=== PATIENT | female | born 1950 | race Caucasian/White ===

== ENCOUNTER → 2016-12-08 | Outpatient (CLI) | payer MEDICARE ==
--- NOTE | 2016-12-08 15:24 | WOMENS IMAGING REPORT ---
EXAM DESCRIPTION: 3D SCREENING MAMMO BILAT COMPLETED DATE/TIME: 12/08/2016 7:41 am REASON FOR STUDY: SCREENING MAMMO Z12.31 ENCNTR SCREEN MAMMOGRAM FOR MALIGNANT NEOPLASM OF ROSANNA COMPARISON: Multiple since 2009 TECHNIQUE: Standard craniocaudal and mediolateral oblique views of each breast recorded using digita l acquisition and breast tomosynthesis. LIMITATIONS: None. FINDINGS: Findings present which are benign by mammographic criteria. No suspicious masses, calcifi cations or architectural distortion. Pertinent benign findings: Stable post surgical biopsy change in the right periareolar region. Stabl e bilateral breast parenchymal calcifications. Read with the assistance of CAD. .[facility] - R2 Cenova Version 1.3 .[facility] - R2 Cenova Version 1.3 .[facility] Imaging - R2 Cenova Version 2.4 .[facility] - R2 Cenova Version 2.4 .[facility] - R2 Director Of Analytics Version 9.2 Benign mammographic findings may include one or more of the following: Smooth masses, popcorn/rim/co arse calcifications, asymmetries, post-procedure changes, and lesions with long-standing stability. IMPRESSION: BENIGN MAMMOGRAPHIC FINDINGS. BIRADS 2 BREAST DENSITY: b. There are scattered areas of fibroglandular density. BIRAD: 2 BENIGN FINDING(S) RECOMMENDATION: RECOMMENDATION: ROUTINE SCREENING Please continue yearly bilateral screening tomosynthesis in December 2017 COMMENT: The patient has been notified of the results by letter per SA requirements. Additional no tification policies are in place for contacting patient with suspicious or incomplete findings. Quality ID #[id number]: The [employer] recommends an annual screening mammogram for women aged 40 years or over. This facility utilizes a reminder system to ensure that all patients receive reminder letters, and/or direct phone calls for appointments. This includes reminders for routine scr eening mammograms, diagnostic mammograms, or other Breast Imaging Interventions when appropriate. Th is patient will be placed in the appropriate reminder system. The [employer] (ACR) has developed recommendations for screening MRI of the breast s in certain patient populations, to be used in conjunction with mammography. Breast MRI surveillanc e may be appropriate for women with more than 20% lifetime risk of developing breast cancer as deter mined by genetic testing, significant family history of the disease, or history of mantle radiation f or Hodgkins Disease. ACR Practice Guidelines 2008. DBT Technology DBT is a type of tomographic mammography. With conventional mammography, overlapping breast tissue ma y make lesions difficult to detect, even with good compression. DBT uses an x-ray tube that rotates a round the breast, taking images at different angles. These images are then combined to create thin sl ices of the breast that the radiologist can view as a 3D reconstruction. The Hologic unit can perform full-field digital mammograms (2D imaging); or DBT (3D imaging); or both, in a combination mode that quickly performs both the mammogram and the tomosynthesis scan while the breast is still compressed. PQRS 6045F: Fluoroscopic imaging is not utilized for breast tomosynthesis. TECHNICAL DOCUMENTATION: FINDING NUMBER: (1) ASSESSMENT: (1) JOB ID: [id number] [employer]- All Rights Reserved
== END ==
LOC: WI 07:15
PROVIDERS: ATTEND Internal Medicine
DX: Z12.31 Encounter for screening mammogram for malignant neoplasm of breast (principal)
CPT/HCPCS: 77063; G0202; 77067

== ENCOUNTER → 2018-01-11 | Outpatient (CLI) | payer MEDICARE ==
--- NOTE | 2018-01-11 10:39 | WOMENS IMAGING REPORT ---
EXAM DESCRIPTION: BONE DENSITY HIP/SPINE COMPLETED DATE/TIME: 01/11/2018 10:16 am REASON FOR STUDY: OSTEOPOROSIS Z12.31 ENCNTR SCREEN MAMMOGRAM FOR MALIGNANT NEOPLASM OF ROSANNA M81.0 AGE-RELATED OSTEOPOROSIS W/O CURRENT PATHOLOGICAL FRAC COMPARISON: None. TECHNIQUE: Dual-Energy X-ray Absorptiometry (DEXA) of the AP Spine and Hip. LIMITATIONS: None. FINDINGS: LUMBAR SPINE: The bone mineral density (BMD) measured from L1-L4 in the AP projection correlates with a T-score of -2.7, which is osteoporosis as defined by the World Health Organization. HIP: The bone mineral density (BMD) measured in the left hip correlates with a T-score of -2.0, which is o steopenia as defined by the World Health Organization. IMPRESSION: 1. LUMBAR SPINE: Osteoporosis 2. HIP: Osteopenia COMMENT: The World Health Organization defines low BMD as follows: T-score: Normal: Greater than -1.0 Osteopenia: Between -1.0 and -2.5 Osteoporosis: Less than -2.5 without fractures Established osteoporosis: Less than -2.5 with fractures In general, you may wish to consider: Diagnosis Treatment Follow-up DEXA Normal BMD Prevention 2-3 years Osteopenia Prevention/Therapy 1-2 years Osteoporosis Therapy Yearly TECHNICAL DOCUMENTATION: JOB ID: [id number] [employer]- All Rights Reserved Reading location - IP/workstation name: [email or web address]
--- NOTE | 2018-01-11 14:46 | WOMENS IMAGING REPORT ---
EXAM DESCRIPTION: 3D SCREENING MAMMO BILAT COMPLETED DATE/TIME: 01/11/2018 10:17 am REASON FOR STUDY: SCREENING MAMMO Z12.31 ENCNTR SCREEN MAMMOGRAM FOR MALIGNANT NEOPLASM OF ROSANNA M81. 0 AGE-RELATED OSTEOPOROSIS W/O CURRENT PATHOLOGICAL FRAC COMPARISON: [id number] TECHNIQUE: Standard craniocaudal and mediolateral oblique views of each breast recorded using digita l acquisition and breast tomosynthesis. LIMITATIONS: None. FINDINGS: Findings present which are benign by mammographic criteria. No suspicious masses, calcifi cations or architectural distortion. Pertinent benign findings: Stable architectural distortion right. Read with the assistance of CAD. .[facility] - R2 Cenova Version 1.3 .[facility] Imaging - R2 Cenova Version 1.3 .[facility] Imaging - R2 Cenova Version 2.4 .[facility] - R2 Cenova Version 2.4 .[facility] - R2 Health Care Marketing Specialist Version 9.2 Benign mammographic findings may include one or more of the following: Smooth masses, popcorn/rim/co arse calcifications, asymmetries, post-procedure changes, and lesions with long-standing stability. IMPRESSION: BENIGN MAMMOGRAPHIC FINDINGS. BIRADS 2 BREAST DENSITY: b. There are scattered areas of fibroglandular density. BIRAD: 2 BENIGN FINDING(S) RECOMMENDATION: RECOMMENDATION: ROUTINE SCREENING COMMENT: The patient has been notified of the results by letter per SA requirements. Additional no tification policies are in place for contacting patient with suspicious or incomplete findings. Quality ID #[id number]: The [employer] recommends an annual screening mammogram for women aged 40 years or over. This facility utilizes a reminder system to ensure that all patients receive reminder letters, and/or direct phone calls for appointments. This includes reminders for routine scr eening mammograms, diagnostic mammograms, or other Breast Imaging Interventions when appropriate. Th is patient will be placed in the appropriate reminder system. The [employer] (ACR) has developed recommendations for screening MRI of the breast s in certain patient populations, to be used in conjunction with mammography. Breast MRI surveillanc e may be appropriate for women with more than 20% lifetime risk of developing breast cancer as deter mined by genetic testing, significant family history of the disease, or history of mantle radiation f or Hodgkins Disease. ACR Practice Guidelines 2008. DBT Technology DBT is a type of tomographic mammography. With conventional mammography, overlapping breast tissue ma y make lesions difficult to detect, even with good compression. DBT uses an x-ray tube that rotates a round the breast, taking images at different angles. These images are then combined to create thin sl ices of the breast that the radiologist can view as a 3D reconstruction. The [employer] unit can perform full-field digital mammograms (2D imaging); or DBT (3D imaging); or both, in a combination mode that quickly performs both the mammogram and the tomosynthesis scan while the breast is still compressed. PQRS 6045F: Fluoroscopic imaging is not utilized for breast tomosynthesis. TECHNICAL DOCUMENTATION: FINDING NUMBER: (1) ASSESSMENT: (1) JOB ID: [id number] [place] [employer]- All Rights Reserved Reading location - IP/workstation name: [email or web address]
== END ==
LOC: WI 09:01
PROVIDERS: ATTEND Internal Medicine
DX: Z12.31 Encounter for screening mammogram for malignant neoplasm of breast (principal); M81.0 Age-related osteoporosis without current pathological fracture
CPT/HCPCS: 77063; 77067; 77080

== ENCOUNTER → 2019-01-10 | Outpatient (CLI) | payer MEDICARE, OTHER ==
--- NOTE | 2019-01-10 10:32 | RADIOLOGY REPORT (SQ) ---
EXAM DESCRIPTION: U/S RETROPERITON (RENAL/AORTA) COMPLETED DATE/TIME: 01/10/2019 9:43 am REASON FOR STUDY: CKD STAGE 3 N18.3 CHRONIC KIDNEY DISEASE, STAGE 3 (MODERATE) COMPARISON: None. TECHNIQUE: Dynamic and static grayscale images acquired of the kidneys and bladder and recorded on P ACS. Additional selected color Doppler and spectral images recorded. LIMITATIONS: None. FINDINGS: RIGHT KIDNEY: The right kidney measures 8.6 cm in length. Normal echogenicity. No corbin id or suspicious masses. No hydronephrosis. No calcifications. LEFT KIDNEY: The left kidney measures 8.5 cm in length. The left kidney is mildly echogenic. No solid or suspicious masses. No hydronephrosis. No calcifications. BLADDER: No masses. OTHER FINDINGS: No other significant finding. IMPRESSION: Small kidneys. The left kidney is echogenic consistent with medical renal disease. No hydronephrosis. TECHNICAL DOCUMENTATION: JOB ID: [id number] [employer]- All Rights Reserved Reading location - IP/workstation name: [email or web address]
== END ==
LOC: RAD 08:50
PROVIDERS: ATTEND Internal Medicine
DX: N18.3 Chronic kidney disease, stage 3 (moderate) (principal)
CPT/HCPCS: 76770

== ENCOUNTER → 2019-01-12 | Outpatient (CLI) | payer MEDICARE, OTHER ==
--- NOTE | 2019-01-12 13:29 | WOMENS IMAGING REPORT ---
EXAM DESCRIPTION: 3D SCREENING MAMMO BILAT COMPLETED DATE/TIME: 01/12/2019 9:42 am REASON FOR STUDY: Z12.31 SCREENING MAMMO Z12.31 ENCNTR SCREEN MAMMOGRAM FOR MALIGNANT NEOPLASM OF B RE COMPARISON: 2015 to 2017 EXAM PARAMETERS: Views: Standard craniocaudal and mediolateral oblique views of each breast recorded using digital acquisition and breast tomosynthesis. Read with the assistance of CAD. .[facility] - [employer] Receiving Clerk Version 9.2 LIMITATIONS: None. FINDINGS: No suspicious masses, suspicious calcifications or architectural distortion. No areas of c oncern. IMPRESSION: NEGATIVE MAMMOGRAM. BIRADS 1. BREAST DENSITY: b. There are scattered areas of fibroglandular density. BIRAD: ASSESSMENT: 1 NEGATIVE RECOMMENDATION: ROUTINE SCREENING COMMENT: The patient has been notified of the results by letter per MQSA requirements. Additional no tification policies are in place for contacting patient with suspicious or incomplete findings. Quality ID #[id number]: The [employer] recommends an annual screening mammogram for women aged 40 years or over. This facility utilizes a reminder system to ensure that all patients receive reminder letters, and/or direct phone calls for appointments. This includes reminders for routine scr eening mammograms, diagnostic mammograms, or other Breast Imaging Interventions when appropriate. Th is patient will be placed in the appropriate reminder system. TECHNICAL DOCUMENTATION: FINDING NUMBER: (1) ASSESSMENT: (1) JOB ID: [id number] [employer]- All Rights Reserved Reading location - IP/workstation name: [email or web address]
== END ==
LOC: RAD 09:20
PROVIDERS: ATTEND Internal Medicine
DX: Z12.31 Encounter for screening mammogram for malignant neoplasm of breast (principal)
CPT/HCPCS: 77063; 77067

== ENCOUNTER 2019-01-15 19:46 | Inpatient (IN) | payer MEDICARE, OTHER ==
--- NOTE | 2019-01-15 20:32 | ER Document Report ---
ED Medical Screen (RME) - General Chief Complaint: ABNORMAL LABS Stated Complaint: ABNORMAL LABS/OFFICE REFERRAL Time Seen by Provider: 01/15/19 20:22 Primary Care Provider: SÁNCHEZ HERBERT MD [Primary Care Provider] - Follow up as needed Mode of Arrival: Ambulatory Information source: Patient Notes: Patient is a 68-year-old female presenting from Dr. Herbert's office stating that she is here for multiple myeloma work-up. Patient reports she had outpatient labs drawn and states that they are abnormal. Patient states Dr. Herbert wanted her to be admitted for a multiple myeloma work-up. Patient does report some left lower back pain but denies any other recent illness to include chest pain, shortness of breath, cough, nausea, vomiting or diarrhea. Exam: Lung sounds clear and equal bilaterally. Patient alert, oriented, answering all questions appropriately with no acute distress noted. I have greeted and performed a rapid initial assessment of this patient. A comprehensive ED assessment and evaluation of the patient, analysis of test results and completion of the medical decision making process will be conducted by additional ED providers. I have specifically instructed the patient or family members with the patient to immediately return to any nursing staff should anything change in the patient's condition or with their chief complaint. This medical record was dictated with voice recognizing software. There may be grammatical, syntax errors that are unintended. TRAVEL OUTSIDE OF THE [place] IN LAST 30 DAYS: No - Related Data Allergies/Adverse Reactions: morphine Allergy (Verified 01/15/19 20:19) Home Medications: See med rec Past Medical History - Social History Chew tobacco use (# tins/day): No Frequency of alcohol use: Rare Drug Abuse: None Renal/ Medical History: Denies: Hx Peritoneal Dialysis - Immunizations Hx Diphtheria, Pertussis, Tetanus Vaccination: No Physical Exam - Vital signs Vitals: Temp Pulse Resp BP Pulse Ox 98.3 F 84 18 145/59 H 96 01/15/19 20:11 01/15/19 20:11 01/15/19 20:11 01/15/19 20:11 01/15/19 20:11 Course - Vital Signs Vital signs: Temp Pulse Resp BP Pulse Ox 98.3 F 84 18 145/59 H 96 01/15/19 20:11 01/15/19 20:11 01/15/19 20:11 01/15/19 20:11 01/15/19 20:11 Doctor's Discharge - Discharge Referrals: SÁNCHEZ HERBERT MD [Primary Care Provider] - Follow up as needed
--- NOTE | 2019-01-15 21:09 | RADIOLOGY REPORT (SQ) ---
XR CHEST 2 VIEWS CLINICAL STATEMENT: abnormal labs, eval for multiple myeloma COMPARISON: None FINDINGS: Cardiomediastinal silhouette is within normal limits. There is no focal lung consolidation or pleural effusion. No evidence of pulmonary edema or pneumothorax. IMPRESSION: No acute cardiopulmonary disease.
--- NOTE | 2019-01-15 21:17 | RADIOLOGY REPORT (SQ) ---
XR LUMBAR SPINE 2-3 VIEWS CLINICAL STATEMENT: eval for multiple myeloma, L flank pain COMPARISON: None FINDINGS: Vertebral body heights are intact. Alignment is intact. No subluxation. Pedicles are intact. Mild vascular calcification. Mild degenerative changes at L2-3 and L3-4. No lytic or blastic lesions are noted. IMPRESSION: No compression fractures. No lytic lesions. Mild degenerative changes.
[2019-01-15 21:43] LABS: APPEARANCE,URINE CLEAR; BILIRUBIN,URINE NEGATIVE (NEGATIVE); COLOR,URINE YELLOW; GLUCOSE, URINE NEGATIVE (NEGATIVE); KETONES,URINE NEGATIVE (NEGATIVE); LEUKOCYTE ESTERASE,URINE MODERATE (NEGATIVE); NITRITE,URINE NEGATIVE (NEGATIVE); PROTEIN,URINE NEGATIVE (NEGATIVE); URINE SPECIFIC GRAVITY 1.014; UROBILINOGEN,URINE NEGATIVE mg/dL (<2.0)
[2019-01-15 21:44] LABS: ABSOLUTE EOSINOPHILS # (AUTO) 0.3 10^3/uL (0.0-0.6); ABSOLUTE LYMPHOCYTES (AUTO) 2.5 10^3/uL (0.5-4.7); ABSOLUTE MONOCYTES (AUTO) 0.3 10^3/uL (0.1-1.4); ABSOLUTE NEUT (AUTO) 2.1 10^3/uL (1.7-8.2); BASOPHILS % (AUTO) 0.6 % (0-2); EOSINOPHILS % (AUTO) 5.3 % (0-6); HEMATOCRIT 28.2 % (36.0-47.0); HEMOGLOBIN 9.5 g/dL (12.0-15.5); LYMPHOCYTES % (AUTO) 47.8 % (13-45); MEAN CORPUSCULAR HEMOGLOBIN 31.4 pg (27.0-33.4); MEAN CORPUSCULAR HGB CONC 33.8 g/dL (32.0-36.0); MEAN CORPUSCULAR VOLUME 93 fl (80-97); MONOCYTES % (AUTO) 6.5 % (3-13); PLATELET COUNT 285 10^3/uL (150-450); RED BLOOD COUNT 3.03 10^6/uL (3.72-5.28); RED CELL DISTRIBUTION WIDTH 13.6 % (11.5-14.0); SEGMENTED NEUTROPHILS % (AUTO) 39.8 % (42-78); TOTAL CELLS COUNTED % (AUTO) 100 %; WHITE BLOOD COUNT 5.2 10^3/uL (4.0-10.5)
[2019-01-15 21:50] LABS: ALBUMIN 4.6 g/dL (3.5-5.0); ALKALINE PHOSPHATASE 54 U/L (38-126); ANION GAP 14 (5-19); ASPARTATE AMINO TRANSFERASE 25 U/L (14-36); BILIRUBIN,DIRECT 0.2 mg/dL (0.0-0.4); BILIRUBIN,TOTAL 0.3 mg/dL (0.2-1.3); BLOOD UREA NITROGEN 37 mg/dL (7-20); CALCIUM 10.3 mg/dL (8.4-10.2); CARBON DIOXIDE 22 mmol/L (22-30); CHLORIDE 104 mmol/L (98-107); GLUCOSE 80 mg/dL (75-110); POTASSIUM 4.9 mmol/L (3.6-5.0); TOTAL PROTEIN 8.5 g/dL (6.3-8.2)
--- NOTE | 2019-01-15 22:29 | PDOC H&P ---
History of Present Illness Admission Date/PCP: 01/15/19 22:11 SÁNCHEZ HERBERT MD History of Present Illness: DORITA HOLLINS is a 68 year old female,Patient was admitted directly from [facility] for the management of hypercalcemia. She had blood work done initially on December 27, 2018 the blood work demonstrated elevated serum creatinine at 1.83 because of this elevation of serum creatinine she was evaluated for possible etiology of the azotemia. Initially a kidney ultrasound was done, The kidney ultrasound showed medical renal disease with no hydronephrosis, subsequent blood work that was done on 01/10/2019 demonstrated serum calcium 11.9, serum creatinine 2.21, the intact PTH was low at 8 she also had anemia, hemoglobin was 8.7. The constellation of hypercalcemia, anemia, acute kidney injury is consistent with multiple myeloma. She is admitted to the hospital to be treated for the hypercalcemia with hydration and probably biphosphonate and also evaluated for multiple myeloma. Serum protein electrophoresis will be ordered free serum light chain will be ordered Past Medical History Cardiac Medical History: Reports: Hypertension Musculoskeltal Medical History: Reports: Arthritis Social History Smoking Status: Former Smoker Electronic Cigarette use?: No Family History Family History: Reviewed & Not Pertinent Parental Family History Reviewed: Yes Children Family History Reviewed: Yes Sibling(s) Family History Reviewed.: Yes Medication/Allergy Home Medications: Calcium Carb, Citrate/Vit D3 [Calcium + D3 ER Tablet] 1 each PO DAILY 01/15/19 Cyclobenzaprine HCl [Flexeril 10 mg Tablet] 10 mg PO TIDP PRN 01/15/19 Denosumab [Prolia 60 mg/ml Syr 1 ml] 60 mg SUBCUT .6MONTHS 01/15/19 Gabapentin [Neurontin 300 mg Capsule] 300 mg PO Q8 01/15/19 Lisinopril/Hydrochlorothiazide [Lisinopril-Hctz 20-12.5 mg Tab] 1 each PO DAILY 01/15/19 Oxycodone HCl 5 mg PO Q6HP PRN 01/15/19 Pravastatin Sodium 10 mg PO DAILY 01/15/19 Allergies/Adverse Reactions: morphine Allergy (Verified 01/15/19 20:19) Review of Systems Constitutional: ABSENT: chills, fever(s), headache(s), weight gain, weight loss Eyes: ABSENT: visual disturbances Ears: ABSENT: hearing changes Cardiovascular: ABSENT: chest pain, dyspnea on exertion, edema, orthropnea, palpitations Respiratory: ABSENT: cough, hemoptysis Gastrointestinal: ABSENT: abdominal pain, constipation, diarrhea, hematemesis, hematochezia, nausea, vomiting Genitourinary: ABSENT: dysuria, hematuria Musculoskeletal: PRESENT: back pain. ABSENT: joint swelling Integumentary: ABSENT: rash, wounds Neurological: ABSENT: abnormal gait, abnormal speech, confusion, dizziness, focal weakness, syncope Psychiatric: ABSENT: anxiety, depression, homidical ideation, suicidal ideation Endocrine: ABSENT: cold intolerance, heat intolerance, menstrual abnormalities, polydipsia, polyuria Hematologic/Lymphatic: ABSENT: easy bleeding, easy bruising, lymphadenopathy Physical Exam Vital Signs: Temp Pulse Resp BP Pulse Ox 98.3 F 84 18 145/59 H 96 01/15/19 20:11 01/15/19 20:11 01/15/19 20:11 01/15/19 20:11 01/15/19 20:11 Intake & Output 01/14/19 01/15/19 01/16/19 06:59 06:59 06:59 Weight 74.752 kg General appearance: PRESENT: no acute distress, well-developed, well-nourished Head exam: PRESENT: atraumatic, normocephalic Eye exam: PRESENT: conjunctiva pink, EOMI, PERRLA Ear exam: PRESENT: normal external ear exam Mouth exam: PRESENT: moist, tongue midline Neck exam: PRESENT: full ROM Respiratory exam: PRESENT: clear to auscultation ramon Cardiovascular exam: PRESENT: RRR, +S1, +S2 Pulses: PRESENT: normal dorsalis pedis pul, +2 pedal pulses bilateral Vascular exam: PRESENT: normal capillary refill GI/Abdominal exam: PRESENT: normal bowel sounds, soft Rectal exam: PRESENT: deferred Neurological exam: PRESENT: alert, awake, oriented to person, oriented to place, oriented to time, oriented to situation, CN II-XII grossly intact Psychiatric exam: PRESENT: appropriate affect, normal mood Skin exam: PRESENT: dry, intact, warm Results Laboratory Results: 01/15/19 21:20 01/15/19 21:20 01/15/19 01/15/19 01/15/19 21:20 21:20 21:20 WBC 5.2 RBC 3.03 L Hgb 9.5 L Hct 28.2 L MCV 93 MCH 31.4 MCHC 33.8 RDW 13.6 Plt Count 285 Seg Neutrophils % 39.8 L Sodium 140.2 Potassium 4.9 Chloride 104 Carbon Dioxide 22 Anion Gap 14 BUN 37 H Creatinine 2.72 H Est GFR ( Amer) 21 L Glucose 80 Calcium 10.3 H Total Bilirubin 0.3 AST 25 Alkaline Phosphatase 54 Total Protein 8.5 H Albumin 4.6 Urine Color YELLOW Urine Appearance CLEAR Urine pH 5.0 Ur Specific [place] 1.014 Urine Protein NEGATIVE Urine Glucose (UA) NEGATIVE Urine Ketones NEGATIVE Urine Blood SMALL H Urine Nitrite NEGATIVE Ur Leukocyte Esterase MODERATE H Urine WBC (Auto) 12 Urine RBC (Auto) 9 Impressions: Chest X-Ray 01/15/19 20:25 IMPRESSION: No acute cardiopulmonary disease. Lumbar Spine X-Ray 01/15/19 20:30 IMPRESSION: No compression fractures. No lytic lesions. Mild degenerative changes. Assessment & Plan - Diagnosis (1) Hypercalcemia Is this a current diagnosis for this admission?: Yes Plan: The constellation of hypercalcemia, acute kidney injury, anemia, is suspicious for multiple myeloma, She would be treated with normal saline to correct the hypercalcemia and also any prerenal component that may present. (2) Anemia Qualifiers: Anemia type: other cause Other causes of anemia: chronic disease, neoplastic Qualified Code(s): D63.0 - Anemia in neoplastic disease Is this a current diagnosis for this admission?: Yes Plan: In the office the serum iron indices was normal including ferritin, serum iron, TIBC, transferrin saturation,The anemia is most likely related to paraproteinemia awaiting serum protein electrophoresis, will also assay free Keppra and lambda light chain. The serum protein electrophoresis is not sensiti ve to detect light chain multiple myeloma (3) Acute kidney injury Is this a current diagnosis for this admission?: Yes
--- NOTE | 2019-01-15 23:18 | RADIOLOGY REPORT (SQ) ---
EXAM DESCRIPTION: XR BONE SURVEY COMPLETE COMPLETED DATE/TME: 01/15/2019 00:00 CLINICAL HISTORY: 68 years, Female, SUSPECT MULTIPLE MYELOMA COMPARISON: Plain films from today's date NUMBER OF VIEWS: 20 TECHNIQUE: Total body adult bone survey LIMITATIONS: None. FINDINGS: Bony calvarium: Hyperostosis frontalis interna incidentally noted. However no lytic lesions to the bony calvarium or evidence for fracture. Cervical spine: Osteopenia. Height and alignment is preserved. No lytic or blastic changes. Thoracic spine: Minor endplate degenerative changes. No focal lytic lesions. Height and alignment is preserved. Lumbar spine: Osteopenia. Height and alignment is preserved. No lytic lesions. Bony thorax: Osteopenia. No discrete lytic or blastic changes. Minimal scarring in the left lung base. Bony pelvis: No focal liver lesions. Minor degenerative change of the hips bilaterally. Right lower extremity: Negative for fracture. No lytic lesions. Left lower extremity: Negative for fracture. No focal lytic lesions. Right upper extremity: Negative for fracture. No lytic lesions. Left upper extremity: Negative for fracture. No lytic lesions.. IMPRESSION: No suspicious lytic or blastic changes to the axial or appendicular skeletons. copyright 2010 [employer]- All Rights Reserved
[2019-01-15 23:59] LABS: UR PRO/CREAT RATIO RESULT 0.1 mg/mg (0.0-0.2); URINE CREATININE 117.4 mg/dL (15-278); URINE PROTEIN 8.5 mg/dL (<12)
[2019-01-16 00:24] LABS: CREATINE KINASE MB 1.87 ng/mL (<4.55)
[2019-01-16 00:28] LABS: TROPONIN I < 0.012 ng/mL
[2019-01-16 00:28] LABS: FREE T4 (FREE THYROXINE) 1.02 ng/dL (0.78-2.19)
[2019-01-16 00:41] LABS: THYROID STIMULATING HORMONE 9.49 uIU/mL (0.47-4.68)
[2019-01-16] MEDS: NORMAL SALINE 1000 ML 1,000 ML IV PRN ×3 (01:47→23:59)
[2019-01-16] MEDS ORDERED: INFLUENZA QUAD (6MOS+) 2019-20 VAC 0.5 ML SYR IM ONE (04:18)
[2019-01-16 05:52] LABS: ABSOLUTE EOSINOPHILS # (AUTO) 0.3 10^3/uL (0.0-0.6); ABSOLUTE MONOCYTES (AUTO) 0.4 10^3/uL (0.1-1.4); ABSOLUTE NEUT (AUTO) 2.2 10^3/uL (1.7-8.2); BASOPHILS % (AUTO) 0.5 % (0-2); EOSINOPHILS % (AUTO) 5.1 % (0-6); HEMATOCRIT 25.1 % (36.0-47.0); HEMOGLOBIN 8.5 g/dL (12.0-15.5); LYMPHOCYTES % (AUTO) 41.4 % (13-45); MEAN CORPUSCULAR HEMOGLOBIN 31.2 pg (27.0-33.4); MEAN CORPUSCULAR HGB CONC 33.9 g/dL (32.0-36.0); MEAN CORPUSCULAR VOLUME 92 fl (80-97); MONOCYTES % (AUTO) 8.7 % (3-13); PLATELET COUNT 250 10^3/uL (150-450); RED BLOOD COUNT 2.73 10^6/uL (3.72-5.28); RED CELL DISTRIBUTION WIDTH 13.4 % (11.5-14.0); SEGMENTED NEUTROPHILS % (AUTO) 44.3 % (42-78); TOTAL CELLS COUNTED % (AUTO) 100 %; WHITE BLOOD COUNT 4.9 10^3/uL (4.0-10.5)
[2019-01-16 06:09] LABS: ALBUMIN 3.6 g/dL (3.5-5.0); ALKALINE PHOSPHATASE 42 U/L (38-126); ANION GAP 8 (5-19); ASPARTATE AMINO TRANSFERASE 21 U/L (14-36); BILIRUBIN,DIRECT 0.2 mg/dL (0.0-0.4); BILIRUBIN,TOTAL 0.2 mg/dL (0.2-1.3); BLOOD UREA NITROGEN 34 mg/dL (7-20); CALCIUM 9.4 mg/dL (8.4-10.2); CARBON DIOXIDE 25 mmol/L (22-30); CHLORIDE 109 mmol/L (98-107); GLUCOSE 101 mg/dL (75-110); POTASSIUM 4.4 mmol/L (3.6-5.0); TOTAL PROTEIN 6.6 g/dL (6.3-8.2)
[2019-01-16 06:19] LABS: CREATINE KINASE MB 1.49 ng/mL (<4.55)
[2019-01-16 06:20] LABS: TROPONIN I < 0.012 ng/mL
[2019-01-16] MEDS: HEPARIN SOD (PORCINE) 5,000 UNIT/ML 1 ML VIAL SUBCUT SCH ×4 (07:35→21:11)
[2019-01-16 08:32] LABS: APPEARANCE,URINE CLEAR; BILIRUBIN,URINE NEGATIVE (NEGATIVE); COLOR,URINE STRAW; GLUCOSE, URINE NEGATIVE (NEGATIVE); KETONES,URINE NEGATIVE (NEGATIVE); LEUKOCYTE ESTERASE,URINE MODERATE (NEGATIVE); NITRITE,URINE NEGATIVE (NEGATIVE); PROTEIN,URINE NEGATIVE (NEGATIVE); URINE SPECIFIC GRAVITY 1.009; UROBILINOGEN,URINE NEGATIVE mg/dL (<2.0)
[2019-01-16 08:50] LABS: URINE AMPHETAMINES SCREEN NEGATIVE; URINE BARBITURATES SCREEN NEGATIVE; URINE BENZODIAZEPINES SCREEN NEGATIVE; URINE COCAINE SCREEN NEGATIVE; URINE MARIJUANA (THC) SCREEN NEGATIVE; URINE METHADONE SCREEN NEGATIVE; URINE PHENCYCLIDINE SCREEN NEGATIVE
[2019-01-16 12:11] LABS: TROPONIN I < 0.012 ng/mL
[2019-01-16] MEDS ORDERED: (PENDING PHARMACY ID) (Oxycodone Hcl [Oxycodone Hcl] 5 MG) PO PRN (20:20)
[2019-01-16] MEDS ORDERED: CYCLOBENZAPRINE HCL 10 MG TABLET PO PRN (20:20)
--- NOTE | 2019-01-16 20:25 | PDOC PROGRESS REPORT ---
Subjective Progress Note for:: 01/16/19 Subjective:: Patient was seen by the bedside, she was admitted yesterday for the evaluation and management of hypercalcemia, acute kidney injury, anemia. She is presently on IV fluid therapy. The skeletal survey that was done did not demonstrate any lytic lesion. Reason For Visit: HYPERCALCEMIA, ANEMIA, ACUTE KIDNEY INJURY Physical Exam Vital Signs: Temp Pulse Resp BP Pulse Ox 97.2 F 86 18 122/73 100 01/16/19 19:27 01/16/19 19:27 01/16/19 19:27 01/16/19 19:27 01/16/19 19:27 Intake & Output 01/15/19 01/16/19 01/17/19 06:59 06:59 06:59 Intake Total 240 1900 Output Total 600 Balance 240 1300 Weight 75.3 kg General appearance: PRESENT: no acute distress Eye exam: PRESENT: PERRLA Respiratory exam: PRESENT: clear to auscultation ramon Cardiovascular exam: PRESENT: +S1, +S2 GI/Abdominal exam: PRESENT: soft Neurological exam: PRESENT: alert, CN II-XII grossly intact Results Laboratory Results: 01/16/19 05:38 01/16/19 05:38 01/15/19 01/15/19 01/15/19 21:20 21:20 21:20 WBC 5.2 RBC 3.03 L Hgb 9.5 L Hct 28.2 L MCV 93 MCH 31.4 MCHC 33.8 RDW 13.6 Plt Count 285 Seg Neutrophils % 39.8 L Sodium 140.2 Potassium 4.9 Chloride 104 Carbon Dioxide 22 Anion Gap 14 BUN 37 H Creatinine 2.72 H Est GFR ( Amer) 21 L Glucose 80 Calcium 10.3 H Phosphorus Magnesium Total Bilirubin 0.3 AST 25 Alkaline Phosphatase 54 Total Protein 8.5 H Albumin 4.6 Amylase Lipase TSH Free T4 PTH Intact Urine Color YELLOW Urine Appearance CLEAR Urine pH 5.0 Ur Specific [place] 1.014 Urine Protein NEGATIVE Urine Glucose (UA) NEGATIVE Urine Ketones NEGATIVE Urine Blood SMALL H Urine Nitrite NEGATIVE Ur Leukocyte Esterase MODERATE H Urine WBC (Auto) 12 Urine RBC (Auto) 9 01/15/19 01/15/19 01/15/19 21:20 21:20 23:23 WBC RBC Hgb Hct MCV MCH MCHC RDW Plt Count Seg Neutrophils % Sodium Potassium Chloride Carbon Dioxide Anion Gap BUN Creatinine Est GFR ( Amer) Glucose Calcium Phosphorus 5.0 H Magnesium 2.2 Total Bilirubin AST Alkaline Phosphatase Total Protein Albumin Amylase 100 Lipase 37.8 TSH 9.49 H Free T4 1.02 PTH Intact 51.8 Urine Color Urine Appearance Urine pH Ur Specific [place] Urine Protein Urine Glucose (UA) Urine Ketones Urine Blood Urine Nitrite Ur Leukocyte Esterase Urine WBC (Auto) Urine RBC (Auto) 01/16/19 01/16/19 01/16/19 05:38 05:38 07:30 WBC 4.9 RBC 2.73 L Hgb 8.5 L Hct 25.1 L MCV 92 MCH 31.2 MCHC 33.9 RDW 13.4 Plt Count 250 Seg Neutrophils % 44.3 Sodium 142.2 Potassium 4.4 Chloride 109 H Carbon Dioxide 25 Anion Gap 8 BUN 34 H Creatinine 2.21 H Est GFR ( Amer) 27 L Glucose 101 Calcium 9.4 Phosphorus Magnesium Total Bilirubin 0.2 AST 21 Alkaline Phosphatase 42 Total Protein 6.6 Albumin 3.6 Amylase Lipase TSH Free T4 PTH Intact Urine Color STRAW Urine Appearance CLEAR Urine pH 5.0 Ur Specific [place] 1.009 Urine Protein NEGATIVE Urine Glucose (UA) NEGATIVE Urine Ketones NEGATIVE Urine Blood NEGATIVE Urine Nitrite NEGATIVE Ur Leukocyte Esterase MODERATE H Urine WBC (Auto) 10 Urine RBC (Auto) 2 01/15/19 01/15/19 01/16/19 23:23 23:23 05:38 CK-MB (CK-2) 1.87 1.49 Troponin I < 0.012 < 0.012 NT-Pro-B Natriuret Pep 114 01/16/19 11:21 CK-MB (CK-2) 1.30 Troponin I < 0.012 NT-Pro-B Natriuret Pep Impressions: Skeletal Survey 01/15/19 00:00 IMPRESSION: No suspicious lytic or blastic changes to the axial or appendicular skeletons. copyright 2010 [employer]- All Rights Reserved Chest X-Ray 01/15/19 20:25 IMPRESSION: No acute cardiopulmonary disease. Lumbar Spine X-Ray 01/15/19 20:30 IMPRESSION: No compression fractures. No lytic lesions. Mild degenerative changes. Assessment & Plan - Diagnosis (1) Hypercalcemia Is this a current diagnosis for this admission?: Yes Plan: She will continue hydration, the serum calcium is responding to hydration (2) Anemia Qualifiers: Anemia type: other cause Other causes of anemia: chronic disease, neoplastic Qualified Code(s): D63.0 - Anemia in neoplastic disease Is this a current diagnosis for this admission?: Yes (3) Acute kidney injury Is this a current diagnosis for this admission?: Yes Plan: There is slight improvement in the azotemia with hydration - Time Time Spent with patient: 35 or more minutes Level of Care: IMCU
[2019-01-16] MEDS ORDERED: (PENDING PHARMACY ID) (Pravastatin Sodium [Pravastatin Sodium] 10 MG) PO SCH (20:30)
[2019-01-16] MEDS ORDERED: (PENDING PHARMACY ID) (Lisinopril/Hydrochlorothiazide [Lisinopril-Hctz 20-12.5 Mg Tab] 1 E PO SCH (20:30)
[2019-01-16] MEDS: SIMVASTATIN 10 MG TABLET PO SCH (21:10)
[2019-01-16] MEDS: GABAPENTIN 300 MG CAPSULE PO SCH (21:11)
[2019-01-17] MEDS: GABAPENTIN 300 MG CAPSULE PO SCH ×3 (05:25→21:46)
[2019-01-17] MEDS: HEPARIN SOD (PORCINE) 5,000 UNIT/ML 1 ML VIAL SUBCUT SCH ×3 (05:25→21:46)
[2019-01-17] MEDS: OXYCODONE HCL IR 5 MG TABLET PO PRN (05:25)
[2019-01-17 08:21] LABS: ABSOLUTE EOSINOPHILS # (AUTO) 0.2 10^3/uL (0.0-0.6); ABSOLUTE LYMPHOCYTES (AUTO) 1.8 10^3/uL (0.5-4.7); ABSOLUTE MONOCYTES (AUTO) 0.4 10^3/uL (0.1-1.4); ABSOLUTE NEUT (AUTO) 2.4 10^3/uL (1.7-8.2); BASOPHILS % (AUTO) 0.7 % (0-2); EOSINOPHILS % (AUTO) 4.4 % (0-6); HEMOGLOBIN 9.4 g/dL (12.0-15.5); LYMPHOCYTES % (AUTO) 37.1 % (13-45); MEAN CORPUSCULAR HEMOGLOBIN 31.5 pg (27.0-33.4); MEAN CORPUSCULAR HGB CONC 34.8 g/dL (32.0-36.0); MEAN CORPUSCULAR VOLUME 91 fl (80-97); MONOCYTES % (AUTO) 7.4 % (3-13); PLATELET COUNT 266 10^3/uL (150-450); RED BLOOD COUNT 2.99 10^6/uL (3.72-5.28); RED CELL DISTRIBUTION WIDTH 13.4 % (11.5-14.0); SEGMENTED NEUTROPHILS % (AUTO) 50.4 % (42-78); TOTAL CELLS COUNTED % (AUTO) 100 %; WHITE BLOOD COUNT 4.8 10^3/uL (4.0-10.5)
[2019-01-17] MEDS: LISINOPRIL 10 MG TABLET PO SCH (09:17)
[2019-01-17] MEDS: NORMAL SALINE 1000 ML 1,000 ML IV PRN ×2 (09:17→22:21)
[2019-01-17] MEDS: HYDROCHLOROTHIAZIDE 12.5 MG TABLET PO SCH (09:18)
[2019-01-17 15:36] LABS: ALBUMIN 2 3.1 g/dL (2.9-4.4); ALPHA-2-GLOBULIN 2 0.8 g/dL (0.4-1.0); GAMMA GLOBULIN 1.1 g/dL (0.4-1.8); GLOBULIN TOTAL 3.1 g/dL (2.2-3.9); M-SPIKE % UR Not Observed % (Not Observ); MONOCLONAL SPIKE Not Observed g/dL (Not Observ); PROTEIN TOTAL SERUM 6.2 g/dL (6.0-8.5); PROTEIN TOTAL URINE 7.4 mg/dL (Not Estab.)
--- NOTE | 2019-01-17 20:25 | PDOC PROGRESS REPORT ---
Subjective Progress Note for:: 01/17/19 Subjective:: Patient seen by the bedside, the serum creatinine remains elevated, urine collection ongoing, serum calcium is improved with hydration Reason For Visit: HYPERCALCEMIA, ANEMIA, ACUTE KIDNEY INJURY Physical Exam Vital Signs: Temp Pulse Resp BP Pulse Ox 98.4 F 87 18 127/67 H 100 01/17/19 15:03 01/17/19 19:00 01/17/19 15:03 01/17/19 15:03 01/17/19 15:03 Intake & Output 01/16/19 01/17/19 01/18/19 06:59 06:59 06:59 Intake Total 240 2900 1720 Output Total 1000 1100 Balance 240 1900 620 Weight 75.3 kg 75 kg General appearance: PRESENT: no acute distress Eye exam: PRESENT: PERRLA Respiratory exam: PRESENT: clear to auscultation ramon Cardiovascular exam: PRESENT: +S1, +S2 GI/Abdominal exam: PRESENT: soft Neurological exam: PRESENT: alert, CN II-XII grossly intact Results Laboratory Results: 01/17/19 04:29 01/16/19 05:38 01/17/19 04:29 WBC 4.8 RBC 2.99 L Hgb 9.4 L Hct 27.0 L MCV 91 MCH 31.5 MCHC 34.8 RDW 13.4 Plt Count 266 Seg Neutrophils % 50.4 01/15/19 01/15/19 01/16/19 23:23 23:23 05:38 CK-MB (CK-2) 1.87 1.49 Troponin I < 0.012 < 0.012 NT-Pro-B Natriuret Pep 114 01/16/19 11:21 CK-MB (CK-2) 1.30 Troponin I < 0.012 NT-Pro-B Natriuret Pep Impressions: Skeletal Survey 01/15/19 00:00 IMPRESSION: No suspicious lytic or blastic changes to the axial or appendicular skeletons. copyright 2011 [employer]- All Rights Reserved Chest X-Ray 01/15/19 20:25 IMPRESSION: No acute cardiopulmonary disease. Lumbar Spine X-Ray 01/15/19 20:30 IMPRESSION: No compression fractures. No lytic lesions. Mild degenerative changes. Assessment & Plan - Diagnosis (1) Hypercalcemia Is this a current diagnosis for this admission?: Yes Plan: Improved with hydration (2) Anemia Qualifiers: Anemia type: other cause Other causes of anemia: chronic disease, neoplastic Qualified Code(s): D63.0 - Anemia in neoplastic disease Is this a current diagnosis for this admission?: Yes (3) Acute kidney injury Is this a current diagnosis for this admission?: Yes - Time Time Spent with patient: 35 or more minutes
[2019-01-17] MEDS: SIMVASTATIN 10 MG TABLET PO SCH (21:41)
[2019-01-18] MEDS: GABAPENTIN 300 MG CAPSULE PO SCH ×3 (05:05→21:39)
[2019-01-18] MEDS: HEPARIN SOD (PORCINE) 5,000 UNIT/ML 1 ML VIAL SUBCUT SCH ×3 (05:05→21:38)
[2019-01-18 05:07] LABS: ABSOLUTE EOSINOPHILS # (AUTO) 0.1 10^3/uL (0.0-0.6); ABSOLUTE LYMPHOCYTES (AUTO) 1.8 10^3/uL (0.5-4.7); ABSOLUTE MONOCYTES (AUTO) 0.4 10^3/uL (0.1-1.4); ABSOLUTE NEUT (AUTO) 2.6 10^3/uL (1.7-8.2); BASOPHILS % (AUTO) 0.4 % (0-2); EOSINOPHILS % (AUTO) 2.7 % (0-6); HEMATOCRIT 27.3 % (36.0-47.0); HEMOGLOBIN 9.3 g/dL (12.0-15.5); MEAN CORPUSCULAR HEMOGLOBIN 31.4 pg (27.0-33.4); MEAN CORPUSCULAR HGB CONC 34.1 g/dL (32.0-36.0); MEAN CORPUSCULAR VOLUME 92 fl (80-97); MONOCYTES % (AUTO) 7.7 % (3-13); PLATELET COUNT 262 10^3/uL (150-450); RED BLOOD COUNT 2.97 10^6/uL (3.72-5.28); RED CELL DISTRIBUTION WIDTH 13.6 % (11.5-14.0); SEGMENTED NEUTROPHILS % (AUTO) 53.2 % (42-78); TOTAL CELLS COUNTED % (AUTO) 100 %
[2019-01-18] MEDS: NORMAL SALINE 1000 ML 1,000 ML IV PRN ×2 (06:47→23:28)
[2019-01-18 07:15] LABS: KAPPA LAMBDA RATIO 1.92 (0.26-1.65)
[2019-01-18 08:49] LABS: ALBUMIN 3.6 g/dL (3.5-5.0); ALKALINE PHOSPHATASE 50 U/L (38-126); ANION GAP 6 (5-19); ASPARTATE AMINO TRANSFERASE 25 U/L (14-36); BILIRUBIN,DIRECT 0.1 mg/dL (0.0-0.4); BILIRUBIN,TOTAL 0.2 mg/dL (0.2-1.3); BLOOD UREA NITROGEN 15 mg/dL (7-20); CALCIUM 8.3 mg/dL (8.4-10.2); CARBON DIOXIDE 22 mmol/L (22-30); CHLORIDE 114 mmol/L (98-107); GLUCOSE 94 mg/dL (75-110); POTASSIUM 4.6 mmol/L (3.6-5.0); TOTAL PROTEIN 7.1 g/dL (6.3-8.2)
[2019-01-18] MEDS: OXYCODONE HCL IR 5 MG TABLET PO PRN ×3 (09:02→23:25)
[2019-01-18] MEDS: LISINOPRIL 10 MG TABLET PO SCH (10:10)
[2019-01-18] MEDS: HYDROCHLOROTHIAZIDE 12.5 MG TABLET PO SCH (14:18)
--- NOTE | 2019-01-18 14:49 | PDOC PROGRESS REPORT ---
Subjective Progress Note for:: 01/18/19 Subjective:: She has free light chain myeloma, the serum electrophoresis was negative for myeloma spike but the serum free kappa light chain was elevated, the ratio of kappa/lambda was elevated, she would need a bone marrow biopsy, I will consult Dr. Monge oncology Reason For Visit: HYPERCALCEMIA, ANEMIA, ACUTE KIDNEY INJURY Physical Exam Vital Signs: Temp Pulse Resp BP Pulse Ox 98.3 F 68 17 140/73 H 100 01/18/19 10:57 01/18/19 10:57 01/18/19 10:57 01/18/19 10:57 01/18/19 10:57 Intake & Output 01/17/19 01/18/19 01/19/19 06:59 06:59 06:59 Intake Total 2900 3970 222 Output Total 1000 1100 Balance 1900 2870 222 Weight 75 kg 74.9 kg General appearance: PRESENT: no acute distress Eye exam: PRESENT: PERRLA Respiratory exam: PRESENT: clear to auscultation ramon Cardiovascular exam: PRESENT: +S1, +S2 Neurological exam: PRESENT: alert Results Laboratory Results: 01/18/19 04:39 01/18/19 04:39 01/15/19 01/18/19 01/18/19 21:20 04:39 04:39 WBC 5.0 RBC 2.97 L Hgb 9.3 L Hct 27.3 L MCV 92 MCH 31.4 MCHC 34.1 RDW 13.6 Plt Count 262 Seg Neutrophils % 53.2 Sodium 142.4 Potassium 4.6 Chloride 114 H Carbon Dioxide 22 Anion Gap 6 BUN 15 Creatinine 1.27 H Est GFR ( Amer) 50 L Glucose 94 Calcium 8.3 L Total Bilirubin 0.2 AST 25 Alkaline Phosphatase 50 Total Protein 6.2 7.1 Albumin 3.1 3.6 01/15/19 01/15/19 01/16/19 23:23 23:23 05:38 CK-MB (CK-2) 1.87 1.49 Troponin I < 0.012 < 0.012 NT-Pro-B Natriuret Pep 114 01/16/19 11:21 CK-MB (CK-2) 1.30 Troponin I < 0.012 NT-Pro-B Natriuret Pep Impressions: Skeletal Survey 01/15/19 00:00 IMPRESSION: No suspicious lytic or blastic changes to the axial or appendicular skeletons. copyright 2010 [employer]- All Rights Reserved Chest X-Ray 01/15/19 20:25 IMPRESSION: No acute cardiopulmonary disease. Lumbar Spine X-Ray 01/15/19 20:30 IMPRESSION: No compression fractures. No lytic lesions. Mild degenerative changes. Assessment & Plan - Diagnosis (1) Hypercalcemia Is this a current diagnosis for this admission?: Yes Plan: Resolved with hydration (2) Anemia Qualifiers: Anemia type: other cause Other causes of anemia: chronic disease, neoplastic Qualified Code(s): D63.0 - Anemia in neoplastic disease Is this a current diagnosis for this admission?: Yes Plan: Most likely related to the myeloma disease (3) Acute kidney injury Is this a current diagnosis for this admission?: Yes Plan: Improved with hydration, kidney ultrasound demonstrated increased echogenicity consistent with medical renal disease (4) Light chain myeloma Is this a current diagnosis for this admission?: Yes Plan: Consult oncology, patient will need bone marrow biopsy - Time Time Spent with patient: 35 or more minutes - Plan Summary Plan Summary: I explained to patient the results of the evaluation so far, consultation is requested from oncology for further evaluation.
[2019-01-18] MEDS: SIMVASTATIN 10 MG TABLET PO SCH (21:39)
[2019-01-19] MEDS: HEPARIN SOD (PORCINE) 5,000 UNIT/ML 1 ML VIAL SUBCUT SCH ×3 (05:49→21:46)
[2019-01-19] MEDS: GABAPENTIN 300 MG CAPSULE PO SCH ×3 (05:49→21:46)
[2019-01-19] MEDS: DIPHENHYDRAMINE HCL 25 MG CAPSULE PO PRN ×2 (08:42→18:09)
--- NOTE | 2019-01-19 09:01 | PDOC CONSULTATION ---
Consultation Consult Date: 01/19/19 Attending physician:: SÁNCHEZ HERBERT Provider Consulted: MICK AMADO Consult reason:: Elevated light chain, anemia and kidney disease History of Present Illness Admission Date/PCP: 01/15/19 22:11 SÁNCHEZ HERBERT MD Patient complains of: Elevated light chain, acute on chronic renal failure History of Present Illness: DORITA HOLLINS is a 68 year old female who presents with acute on chronic renal failure, hypercalcemia, anemia. She tells me she has had history of hypertension now for 2 years but it has not been malignant hypertension, she was told about worsening kidney function about 3 months ago and it acutely worsened and she was brought into the hospital, she was hypercalcemic when she came in, she had SPEP done which was negative but free light chain was elevated and there was concern of multiple myeloma as the cause of the renal failure and anemia. Therefore we were consulted. Skeletal survey was done negative for any lytic lesions. Past Medical History Cardiac Medical History: Reports: Hypertension Musculoskeltal Medical History: Reports: Arthritis Past Surgical History Past Surgical History: Reports: None Social History Information Source: Patient Smoking Status: Former Smoker Electronic Cigarette use?: No - Advance Directive Resuscitation Status: Full Code Family History Family History: Reviewed & Not Pertinent Parental Family History Reviewed: Yes Children Family History Reviewed: Yes Sibling(s) Family History Reviewed.: Yes Medication/Allergy Home Medications: Calcium Carb, Citrate/Vit D3 [Calcium + D3 ER Tablet] 1 each PO DAILY 01/15/19 Cyclobenzaprine HCl [Flexeril 10 mg Tablet] 10 mg PO TIDP PRN 01/15/19 Denosumab [Prolia 60 mg/ml Syr 1 ml] 60 mg SUBCUT .6MONTHS 01/15/19 Gabapentin [Neurontin 300 mg Capsule] 300 mg PO Q8 01/15/19 Lisinopril/Hydrochlorothiazide [Lisinopril-Hctz 20-12.5 mg Tab] 1 each PO DAILY 01/15/19 Oxycodone HCl 5 mg PO Q6HP PRN 01/15/19 Pravastatin Sodium 10 mg PO DAILY 01/15/19 Allergies/Adverse Reactions: morphine Allergy (Verified 01/15/19 20:19) Review of Systems Constitutional: ABSENT: chills, fever(s), headache(s), weight gain, weight loss Eyes: ABSENT: visual disturbances Ears: ABSENT: hearing changes Cardiovascular: ABSENT: chest pain, dyspnea on exertion, edema, orthropnea, palpitations Respiratory: ABSENT: cough, hemoptysis Gastrointestinal: ABSENT: abdominal pain, constipation, diarrhea, hematemesis, hematochezia, nausea, vomiting Genitourinary: ABSENT: dysuria, hematuria Musculoskeletal: ABSENT: joint swelling Integumentary: ABSENT: rash, wounds Neurological: ABSENT: abnormal gait, abnormal speech, confusion, dizziness, focal weakness, syncope Psychiatric: ABSENT: anxiety, depression, homidical ideation, suicidal ideation Endocrine: ABSENT: cold intolerance, heat intolerance, polydipsia, polyuria Hematologic/Lymphatic: ABSENT: easy bleeding, easy bruising Physical Exam Vital Signs: Temp Pulse Resp BP Pulse Ox 98.1 F 80 18 145/73 H 100 01/19/19 03:33 01/19/19 06:48 01/19/19 03:33 01/19/19 03:33 01/19/19 03:33 Intake & Output 01/18/19 01/19/19 01/20/19 06:59 06:59 06:59 Intake Total 3970 1460 Output Total 1100 Balance 2870 1460 Weight 74.9 kg 76.4 kg General appearance: PRESENT: no acute distress, well-developed, well-nourished Head exam: PRESENT: atraumatic, normocephalic Eye exam: PRESENT: conjunctiva pink, EOMI, PERRLA. ABSENT: scleral icterus Ear exam: PRESENT: normal external ear exam Mouth exam: PRESENT: moist, tongue midline Neck exam: ABSENT: carotid bruit, JVD, lymphadenopathy, thyromegaly Respiratory exam: PRESENT: clear to auscultation ramon. ABSENT: rales, rhonchi, wheezes Cardiovascular exam: PRESENT: RRR. ABSENT: diastolic murmur, rubs, systolic murmur Pulses: PRESENT: normal dorsalis pedis pul Vascular exam: PRESENT: normal capillary refill GI/Abdominal exam: PRESENT: normal bowel sounds, soft. ABSENT: distended, guarding, mass, organolmegaly, rebound, tenderness Rectal exam: PRESENT: deferred Extremities exam: PRESENT: full ROM. ABSENT: calf tenderness, clubbing, pedal edema Neurological exam: PRESENT: alert, awake, oriented to person, oriented to place, oriented to time, oriented to situation, CN II-XII grossly intact. ABSENT: motor sensory deficit Psychiatric exam: PRESENT: appropriate affect, normal mood. ABSENT: homicidal ideation, suicidal ideation Skin exam: PRESENT: dry, intact, warm. ABSENT: cyanosis, rash Results Laboratory Results: 01/18/19 04:39 01/18/19 04:39 01/15/19 01/15/19 01/16/19 23:23 23:23 05:38 CK-MB (CK-2) 1.87 1.49 Troponin I < 0.012 < 0.012 NT-Pro-B Natriuret Pep 114 01/16/19 11:21 CK-MB (CK-2) 1.30 Troponin I < 0.012 NT-Pro-B Natriuret Pep Impressions: Skeletal Survey 01/15/19 00:00 IMPRESSION: No suspicious lytic or blastic changes to the axial or appendicular skeletons. copyright 2011 [employer]- All Rights Reserved Chest X-Ray 01/15/19 20:25 IMPRESSION: No acute cardiopulmonary disease. Lumbar Spine X-Ray 01/15/19 20:30 IMPRESSION: No compression fractures. No lytic lesions. Mild degenerative changes. Assessment & Plan - Diagnosis (1) Light chain myeloma Is this a current diagnosis for this admission?: Yes Plan: Patient may have myeloma type process although the light chain is very low, usually we see the light chain in the 4-500 range when there is significant anemia and kidney damage/endorgan damage. But I do believe given the fact that we do not have a good reason for her acute renal failure because the hypertension has not been that severe, that we should consider bone marrow biopsy, I will set that up for Tuesday. - Time Time Spent: Greater than 70 Minutes - Inpatient Certification Based on my medical assessment, after consideration of the patient's comorbidities, presenting symptoms, or acuity I expect that the services needed warrant INPATIENT care.: Yes I certify that my determination is in accordance with my understanding of Medicare's requirements for reasonable and necessary INPATIENT services [42 CFR 412.3e].: Yes Medical Necessity: Need For IV Fluids, Need for Surgery
[2019-01-19 09:14] LABS: ABSOLUTE EOSINOPHILS # (AUTO) 0.1 10^3/uL (0.0-0.6); ABSOLUTE LYMPHOCYTES (AUTO) 1.7 10^3/uL (0.5-4.7); ABSOLUTE MONOCYTES (AUTO) 0.3 10^3/uL (0.1-1.4); ABSOLUTE NEUT (AUTO) 2.8 10^3/uL (1.7-8.2); BASOPHILS % (AUTO) 0.6 % (0-2); EOSINOPHILS % (AUTO) 1.4 % (0-6); HEMATOCRIT 28.8 % (36.0-47.0); HEMOGLOBIN 9.7 g/dL (12.0-15.5); LYMPHOCYTES % (AUTO) 34.8 % (13-45); MEAN CORPUSCULAR HEMOGLOBIN 30.9 pg (27.0-33.4); MEAN CORPUSCULAR HGB CONC 33.7 g/dL (32.0-36.0); MEAN CORPUSCULAR VOLUME 92 fl (80-97); MONOCYTES % (AUTO) 5.8 % (3-13); PLATELET COUNT 257 10^3/uL (150-450); RED BLOOD COUNT 3.14 10^6/uL (3.72-5.28); RED CELL DISTRIBUTION WIDTH 13.6 % (11.5-14.0); SEGMENTED NEUTROPHILS % (AUTO) 57.4 % (42-78); TOTAL CELLS COUNTED % (AUTO) 100 %; WHITE BLOOD COUNT 4.9 10^3/uL (4.0-10.5)
[2019-01-19 09:33] LABS: ALBUMIN 3.8 g/dL (3.5-5.0); ALKALINE PHOSPHATASE 49 U/L (38-126); ANION GAP 8 (5-19); ASPARTATE AMINO TRANSFERASE 36 U/L (14-36); BILIRUBIN,DIRECT 0.2 mg/dL (0.0-0.4); BILIRUBIN,TOTAL 0.4 mg/dL (0.2-1.3); BLOOD UREA NITROGEN 9 mg/dL (7-20); CALCIUM 8.2 mg/dL (8.4-10.2); CARBON DIOXIDE 19 mmol/L (22-30); CHLORIDE 118 mmol/L (98-107); GLUCOSE 88 mg/dL (75-110); POTASSIUM 4.4 mmol/L (3.6-5.0); TOTAL PROTEIN 7.1 g/dL (6.3-8.2)
[2019-01-19] MEDS: HYDROCHLOROTHIAZIDE 12.5 MG TABLET PO SCH (10:31)
[2019-01-19] MEDS: LISINOPRIL 10 MG TABLET PO SCH (10:32)
[2019-01-19 15:36] LABS: A/G RATIO. 1.2 (0.7-1.7); ALBUMIN 3 3.3 g/dL (2.9-4.4); ALPHA-1-GLOBULIN 0.2 g/dL (0.0-0.4); IMMUNOGLOBULIN A 115 mg/dL (87-352); IMMUNOGLOBULIN G 1098 mg/dL (700-1600); IMMUNOGLOBULIN M 134 mg/dL (26-217); MONOCLONAL-SPIKE Not Observed g/dL (Not Observ); PROTEIN TOTAL SERUM 6.3 g/dL (6.0-8.5)
[2019-01-19 15:36] LABS: PROTEIN TOTAL UR 24HR 100 mg/24 hr (30-150); PROTEIN TOTAL URINE 4.6 mg/dL (Not Estab.)
[2019-01-19] MEDS: NORMAL SALINE 1000 ML 1,000 ML IV PRN (20:00)
--- NOTE | 2019-01-19 20:15 | PDOC PROGRESS REPORT ---
Subjective Progress Note for:: 01/19/19 Subjective:: .Patient seen, she had diarrhea today, loose stool, she was seen by oncology, scheduled for bone marrow biopsy Reason For Visit: HYPERCALCEMIA, ANEMIA, ACUTE KIDNEY INJURY Physical Exam Vital Signs: Temp Pulse Resp BP Pulse Ox 98.0 F 82 20 143/73 H 100 01/19/19 15:25 01/19/19 15:25 01/19/19 15:25 01/19/19 15:25 01/19/19 15:25 Intake & Output 01/18/19 01/19/19 01/20/19 06:59 06:59 06:59 Intake Total 3970 1460 480 Output Total 1100 Balance 2870 1460 480 Weight 74.9 kg 76.4 kg General appearance: PRESENT: no acute distress Eye exam: PRESENT: PERRLA Respiratory exam: PRESENT: clear to auscultation ramon Cardiovascular exam: PRESENT: +S1, +S2 GI/Abdominal exam: PRESENT: soft Neurological exam: PRESENT: alert, CN II-XII grossly intact Results Laboratory Results: 01/19/19 08:37 01/19/19 08:37 01/15/19 01/16/19 01/19/19 21:20 20:00 08:37 WBC 4.9 RBC 3.14 L Hgb 9.7 L Hct 28.8 L MCV 92 MCH 30.9 MCHC 33.7 RDW 13.6 Plt Count 257 Seg Neutrophils % 57.4 Sodium Potassium Chloride Carbon Dioxide Anion Gap BUN Creatinine Est GFR ( Amer) Glucose Calcium Total Bilirubin AST Alkaline Phosphatase Total Protein 6.3 Albumin Ur Albumin 24 Hour 100.0 Ur Total Protein 24 Hr 100 U PEP M-Jh % 24 Hr Not Observed U PEP M-Jh 24 Hr TNP Stool for White Cells 01/19/19 01/19/19 08:37 17:05 WBC RBC Hgb Hct MCV MCH MCHC RDW Plt Count Seg Neutrophils % Sodium 145.4 H Potassium 4.4 Chloride 118 H Carbon Dioxide 19 L Anion Gap 8 BUN 9 Creatinine 1.12 Est GFR ( Amer) 58 L Glucose 88 Calcium 8.2 L Total Bilirubin 0.4 AST 36 Alkaline Phosphatase 49 Total Protein 7.1 Albumin 3.8 Ur Albumin 24 Hour Ur Total Protein 24 Hr U PEP M-Jh % 24 Hr U PEP M-Jh 24 Hr Stool for White Cells Cancelled 01/15/19 01/15/19 01/16/19 23:23 23:23 05:38 CK-MB (CK-2) 1.87 1.49 Troponin I < 0.012 < 0.012 NT-Pro-B Natriuret Pep 114 01/16/19 11:21 CK-MB (CK-2) 1.30 Troponin I < 0.012 NT-Pro-B Natriuret Pep Impressions: Skeletal Survey 01/15/19 00:00 IMPRESSION: No suspicious lytic or blastic changes to the axial or appendicular skeletons. copyright 2011 [employer]- All Rights Reserved Chest X-Ray 01/15/19 20:25 IMPRESSION: No acute cardiopulmonary disease. Lumbar Spine X-Ray 01/15/19 20:30 IMPRESSION: No compression fractures. No lytic lesions. Mild degenerative changes. 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
[2019-01-19] MEDS: SIMVASTATIN 10 MG TABLET PO SCH (21:46)
[2019-01-20] MEDS: GABAPENTIN 300 MG CAPSULE PO SCH ×3 (05:36→22:33)
[2019-01-20] MEDS: HEPARIN SOD (PORCINE) 5,000 UNIT/ML 1 ML VIAL SUBCUT SCH ×3 (05:36→21:19)
[2019-01-20] MEDS: NORMAL SALINE 1000 ML 1,000 ML IV PRN (05:37)
[2019-01-20] MEDS: HYDROCHLOROTHIAZIDE 12.5 MG TABLET PO SCH (09:09)
[2019-01-20] MEDS: LISINOPRIL 10 MG TABLET PO SCH (09:09)
[2019-01-20 11:56] LABS: C DIFFICILE GDH NEGATIVE (NEGATIVE)
[2019-01-20 12:30] LABS: ABSOLUTE RETICS # 0.042 10^6/uL (0.028-0.122); RETICULOCYTE COUNT (AUTO) 1.41 % (0.66-2.85)
--- NOTE | 2019-01-20 12:33 | PDOC PROGRESS REPORT ---
Subjective Progress Note for:: 01/20/19 Subjective:: Patient patient seems to be doing better today, kidney function has improved, today added iron studies to labs. Reason For Visit: HYPERCALCEMIA, ANEMIA, ACUTE KIDNEY INJURY Physical Exam Vital Signs: Temp Pulse Resp BP Pulse Ox 98.1 F 79 16 147/80 H 97 01/20/19 07:50 01/20/19 07:50 01/20/19 07:50 01/20/19 07:50 01/20/19 07:50 Intake & Output 01/19/19 01/20/19 01/21/19 06:59 06:59 06:59 Intake Total 1460 2720 Output Total 0 Balance 1460 2720 Weight 76.4 kg 74.4 kg General appearance: PRESENT: no acute distress, well-developed, well-nourished Head exam: PRESENT: atraumatic, normocephalic Eye exam: PRESENT: conjunctiva pink, EOMI, PERRLA. ABSENT: scleral icterus Ear exam: PRESENT: normal external ear exam Mouth exam: PRESENT: moist, tongue midline Neck exam: ABSENT: carotid bruit, JVD, lymphadenopathy, thyromegaly Respiratory exam: PRESENT: clear to auscultation ramon. ABSENT: rales, rhonchi, wheezes Cardiovascular exam: PRESENT: RRR. ABSENT: diastolic murmur, rubs, systolic murmur Pulses: PRESENT: normal dorsalis pedis pul Vascular exam: PRESENT: normal capillary refill GI/Abdominal exam: PRESENT: normal bowel sounds, soft. ABSENT: distended, guarding, mass, organolmegaly, rebound, tenderness Rectal exam: PRESENT: deferred Extremities exam: PRESENT: full ROM. ABSENT: calf tenderness, clubbing, pedal edema Neurological exam: PRESENT: alert, awake, oriented to person, oriented to place, oriented to time, oriented to situation, CN II-XII grossly intact. ABSENT: motor sensory deficit Psychiatric exam: PRESENT: appropriate affect, normal mood. ABSENT: homicidal ideation, suicidal ideation Skin exam: PRESENT: dry, intact, warm. ABSENT: cyanosis, rash Results Laboratory Results: 01/19/19 08:37 01/19/19 08:37 01/15/19 01/16/19 01/19/19 21:20 20:00 17:05 Retic Count (auto) Total Protein 6.3 Ur Albumin 24 Hour 100.0 Ur Total Protein 24 Hr 100 U PEP M-Jh % 24 Hr Not Observed U PEP M-Jh 24 Hr TNP Stool for White Cells Cancelled 01/20/19 01/20/19 08:20 11:40 Retic Count (auto) 1.41 Total Protein Ur Albumin 24 Hour Ur Total Protein 24 Hr U PEP M-Jh % 24 Hr U PEP M-Jh 24 Hr Stool for White Cells NO WBCs SEEN 01/15/19 01/15/19 01/16/19 23:23 23:23 05:38 CK-MB (CK-2) 1.87 1.49 Troponin I < 0.012 < 0.012 NT-Pro-B Natriuret Pep 114 01/16/19 11:21 CK-MB (CK-2) 1.30 Troponin I < 0.012 NT-Pro-B Natriuret Pep Impressions: Skeletal Survey 01/15/19 00:00 IMPRESSION: No suspicious lytic or blastic changes to the axial or appendicular skeletons. copyright 2011 [employer]- All Rights Reserved Chest X-Ray 01/15/19 20:25 IMPRESSION: No acute cardiopulmonary disease. Lumbar Spine X-Ray 01/15/19 20:30 IMPRESSION: No compression fractures. No lytic lesions. Mild degenerative changes. Assessment & Plan - Diagnosis (1) Light chain myeloma Is this a current diagnosis for this admission?: Yes Plan: Awaiting bone marrow biopsy on Tuesday, kidney function is slowly improving. Added iron studies to labs today. - Time Time Spent with patient: 35 or more minutes - Inpatient Certification Based on my medical assessment, after consideration of the patient's comorbidities, presenting symptoms, or acuity I expect that the services needed warrant INPATIENT care.: Yes I certify that my determination is in accordance with my understanding of Medicare's requirements for reasonable and necessary INPATIENT services [42 CFR 412.3e].: Yes Medical Necessity: Need For IV Fluids, Need for Surgery, Risk of Complication if Not Cared For in Hospital
[2019-01-20 12:46] LABS: IRON(TIBC) 60.5 ug/dL (37-170)
[2019-01-20 13:56] LABS: FOLATE > 20.00 ng/mL (>2.76)
--- NOTE | 2019-01-20 14:35 | PDOC PROGRESS REPORT ---
Subjective Progress Note for:: 01/20/19 Subjective:: She complained of diarrhea, anorexia the last 2 days. She was seen by oncology earlier today the serum iron indices was normal suggesting no iron deficiency state. She is scheduled for bone marrow biopsy Reason For Visit: HYPERCALCEMIA, ANEMIA, ACUTE KIDNEY INJURY Physical Exam Vital Signs: Temp Pulse Resp BP Pulse Ox 98.1 F 79 16 147/80 H 97 01/20/19 07:50 01/20/19 07:50 01/20/19 07:50 01/20/19 07:50 01/20/19 07:50 Intake & Output 01/19/19 01/20/19 01/21/19 06:59 06:59 06:59 Intake Total 1460 2720 Output Total 0 Balance 1460 2720 Weight 76.4 kg 74.4 kg General appearance: PRESENT: no acute distress Head exam: PRESENT: atraumatic, normocephalic Eye exam: PRESENT: conjunctiva pink, EOMI, PERRLA Ear exam: PRESENT: normal external ear exam Mouth exam: PRESENT: moist, tongue midline Neck exam: PRESENT: full ROM Respiratory exam: PRESENT: clear to auscultation ramon Cardiovascular exam: PRESENT: RRR, +S1, +S2 Pulses: PRESENT: normal dorsalis pedis pul, +2 pedal pulses bilateral Vascular exam: PRESENT: normal capillary refill GI/Abdominal exam: PRESENT: normal bowel sounds, soft Rectal exam: PRESENT: deferred Neurological exam: PRESENT: alert, CN II-XII grossly intact Psychiatric exam: PRESENT: appropriate affect, normal mood Skin exam: PRESENT: dry, intact, warm Results Laboratory Results: 01/19/19 08:37 01/19/19 08:37 01/15/19 01/16/19 01/19/19 21:20 20:00 17:05 Retic Count (auto) Iron TIBC % Saturation Ferritin Total Protein 6.3 Vitamin B12 Folate Ur Albumin 24 Hour 100.0 Ur Total Protein 24 Hr 100 U PEP M-Jh % 24 Hr Not Observed U PEP M-Jh 24 Hr TNP Stool for White Cells Cancelled 01/20/19 01/20/19 01/20/19 08:20 11:40 11:40 Retic Count (auto) 1.41 Iron 60.5 TIBC 277 % Saturation 22 Ferritin 50.40 Total Protein Vitamin B12 749.0 Folate > 20.00 Ur Albumin 24 Hour Ur Total Protein 24 Hr U PEP M-Jh % 24 Hr U PEP M-Jh 24 Hr Stool for White Cells NO WBCs SEEN 01/15/19 01/15/19 01/16/19 23:23 23:23 05:38 CK-MB (CK-2) 1.87 1.49 Troponin I < 0.012 < 0.012 NT-Pro-B Natriuret Pep 114 01/16/19 11:21 CK-MB (CK-2) 1.30 Troponin I < 0.012 NT-Pro-B Natriuret Pep Impressions: Skeletal Survey 01/15/19 00:00 IMPRESSION: No suspicious lytic or blastic changes to the axial or appendicular skeletons. copyright 2011 [employer]- All Rights Reserved Chest X-Ray 01/15/19 20:25 IMPRESSION: No acute cardiopulmonary disease. Lumbar Spine X-Ray 01/15/19 20:30 IMPRESSION: No compression fractures. No lytic lesions. Mild degenerative changes. Assessment & Plan - Diagnosis (1) Hypercalcemia Is this a current diagnosis for this admission?: Yes Plan: Corrected with hydration (2) Anemia Qualifiers: Anemia type: other cause Other causes of anemia: chronic disease, neoplas tic Qualified Code(s): D63.0 - Anemia in neoplastic disease Is this a current diagnosis for this admission?: Yes (3) Acute kidney injury Is this a current diagnosis for this admission?: Yes Plan: Improved with hydration (4) Light chain myeloma Is this a current diagnosis for this admission?: Yes Plan: Scheduled for bone marrow biopsy to confirm myeloma (5) Diarrhea Qualifiers: Diarrhea type: unspecified type Qualified Code(s): R19.7 - Diarrhea, unspecified Is this a current diagnosis for this admission?: Yes - Time Time Spent with patient: 35 or more minutes Level of Care: IMCU
[2019-01-20] MEDS: OXYCODONE HCL IR 5 MG TABLET PO PRN (18:54)
[2019-01-20] MEDS: SIMVASTATIN 10 MG TABLET PO SCH (21:19)
[2019-01-21] MEDS: GABAPENTIN 300 MG CAPSULE PO SCH ×3 (05:16→21:42)
[2019-01-21] MEDS: HYDROCHLOROTHIAZIDE 12.5 MG TABLET PO SCH (09:52)
[2019-01-21] MEDS: LISINOPRIL 10 MG TABLET PO SCH (09:52)
[2019-01-21 11:37] LABS: ABSOLUTE LYMPHOCYTES (AUTO) 1.6 10^3/uL (0.5-4.7); ABSOLUTE MONOCYTES (AUTO) 0.4 10^3/uL (0.1-1.4); BASOPHILS % (AUTO) 0.5 % (0-2); EOSINOPHILS % (AUTO) 0.6 % (0-6); HEMATOCRIT 29.6 % (36.0-47.0); HEMOGLOBIN 10.1 g/dL (12.0-15.5); LYMPHOCYTES % (AUTO) 26.4 % (13-45); MEAN CORPUSCULAR HEMOGLOBIN 30.9 pg (27.0-33.4); MEAN CORPUSCULAR HGB CONC 34.2 g/dL (32.0-36.0); MEAN CORPUSCULAR VOLUME 90 fl (80-97); MONOCYTES % (AUTO) 6.8 % (3-13); PLATELET COUNT 277 10^3/uL (150-450); RED BLOOD COUNT 3.28 10^6/uL (3.72-5.28); RED CELL DISTRIBUTION WIDTH 13.6 % (11.5-14.0); SEGMENTED NEUTROPHILS % (AUTO) 65.7 % (42-78); TOTAL CELLS COUNTED % (AUTO) 100 %
[2019-01-21 11:53] LABS: ALBUMIN 4.2 g/dL (3.5-5.0); ALKALINE PHOSPHATASE 58 U/L (38-126); ANION GAP 13 (5-19); ASPARTATE AMINO TRANSFERASE 49 U/L (14-36); BILIRUBIN,DIRECT 0.1 mg/dL (0.0-0.4); BILIRUBIN,TOTAL 0.4 mg/dL (0.2-1.3); BLOOD UREA NITROGEN 9 mg/dL (7-20); CALCIUM 8.5 mg/dL (8.4-10.2); CARBON DIOXIDE 18 mmol/L (22-30); CHLORIDE 110 mmol/L (98-107); GLUCOSE 80 mg/dL (75-110); POTASSIUM 4.1 mmol/L (3.6-5.0); TOTAL PROTEIN 7.5 g/dL (6.3-8.2)
--- NOTE | 2019-01-21 14:17 | PDOC PROGRESS REPORT ---
Subjective Progress Note for:: 01/21/19 Subjective:: . Patient seen by the bedside, she continues to have loose stool, she is scheduled for a biopsy of the bone marrow tomorrow. So far stool studies negative, will treat empirically with lomotil Reason For Visit: HYPERCALCEMIA, ANEMIA, ACUTE KIDNEY INJURY Physical Exam Vital Signs: Temp Pulse Resp BP Pulse Ox 98.7 F 78 18 166/75 H 100 01/21/19 12:35 01/21/19 14:00 01/21/19 12:35 01/21/19 12:35 01/21/19 12:35 Intake & Output 01/20/19 01/21/19 01/22/19 06:59 06:59 06:59 Intake Total 2720 1575 Output Total 0 Balance 2720 1575 Weight 74.4 kg 74.4 kg General appearance: PRESENT: no acute distress Eye exam: PRESENT: PERRLA Respiratory exam: PRESENT: clear to auscultation ramon Cardiovascular exam: PRESENT: +S1, +S2 GI/Abdominal exam: PRESENT: soft Neurological exam: PRESENT: alert Results Laboratory Results: 01/21/19 11:10 01/21/19 11:10 01/21/19 01/21/19 11:10 11:10 WBC 6.0 RBC 3.28 L Hgb 10.1 L Hct 29.6 L MCV 90 MCH 30.9 MCHC 34.2 RDW 13.6 Plt Count 277 Seg Neutrophils % 65.7 Sodium 140.6 Potassium 4.1 Chloride 110 H Carbon Dioxide 18 L Anion Gap 13 BUN 9 Creatinine 1.13 Est GFR ( Amer) 58 L Glucose 80 Calcium 8.5 Total Bilirubin 0.4 AST 49 H Alkaline Phosphatase 58 Total Protein 7.5 Albumin 4.2 01/19/19 17:05 Stool - Stool - Final 01/19/19 17:05 Stool - Stool Stool Culture - Final NO SALMONELLA, SHIGELLA, CAMPYLOBACTER, OR E.COLI 0157 RECOVERED. NEGATIVE FOR SHIGA TOXINS 1&2. 01/15/19 01/15/19 01/16/19 23:23 23:23 05:38 CK-MB (CK-2) 1.87 1.49 Troponin I < 0.012 < 0.012 NT-Pro-B Natriuret Pep 114 01/16/19 11:21 CK-MB (CK-2) 1.30 Troponin I < 0.012 NT-Pro-B Natriuret Pep Impressions: Skeletal Survey 01/15/19 00:00 IMPRESSION: No suspicious lytic or blastic changes to the axial or appendicular skeletons. copyright 2011 [employer]- All Rights Reserved Chest X-Ray 01/15/19 20:25 IMPRESSION: No acute cardiopulmonary disease. Lumbar Spine X-Ray 01/15/19 20:30 IMPRESSION: No compression fractures. No lytic lesions. Mild degenerative changes. Assessment & Plan - Diagnosis (1) Hypercalcemia Is this a current diagnosis for this admission?: Yes Plan: Resolved, corrected (2) Anemia Qualifiers: Anemia type: other cause Other causes of anemia: chronic disease, neoplastic Qualified Code(s): D63.0 - Anemia in neoplastic disease Is this a current diagnosis for this admission?: Yes (3) Acute kidney injury Is this a current diagnosis for this admission?: Yes Plan: Resolved ,corrected. The kidney ultrasound that was done suggest a chronic kidney disease, with increased echogenicity, this is termed medical renal disease. But with normalization of serum creatinine this suggests that there could be an acute component, acute kidney injury, this give more credence to the fact that she could have myeloma kidney, the serum light chain concentration is not as elevated as is typically seen in light chain myeloma. (4) Light chain myeloma Is this a current diagnosis for this admission?: Yes (5) Diarrhea Qualifiers: Diarrhea type: unspecified type Qualified Code(s): R19.7 - Diarrhea, unspecified Is this a current diagnosis for this admission?: Yes - Time Time Spent with patient: 35 or more minutes Level of Care: IMCU Medications reviewed and adjusted accordingly: Yes - Plan Summary Plan Summary: Patient to be treated with lomotil, PRN, for diarrhea. She is scheduled for bone marrow biopsy in the morning, hopefully discharge home once this is complete. She will follow outpatient with oncology Dr. Monge
[2019-01-21] MEDS: DIPHENOXYLATE HCL/ATROP SULF 2.5-0.025 MG TABLET PO PRN ×2 (17:29→23:44)
[2019-01-21] MEDS: OXYCODONE HCL IR 5 MG TABLET PO PRN (17:31)
[2019-01-21] MEDS: NORMAL SALINE 1000 ML 1,000 ML IV PRN (19:20)
[2019-01-21] MEDS: SIMVASTATIN 10 MG TABLET PO SCH (21:42)
[2019-01-22] MEDS: GABAPENTIN 300 MG CAPSULE PO SCH ×2 (05:19→14:53)
[2019-01-22] MEDS: NORMAL SALINE 1000 ML 1,000 ML IV PRN (05:19)
[2019-01-22] MEDS: OXYCODONE HCL IR 5 MG TABLET PO PRN (05:26)
--- NOTE | 2019-01-22 08:06 | PDOC PROGRESS REPORT ---
Subjective Progress Note for:: 01/22/19 Subjective:: Bone marrow biopsy pending this morning, patient is doing better over the last 24 hours Reason For Visit: HYPERCALCEMIA, ANEMIA, ACUTE KIDNEY INJURY Physical Exam Vital Signs: Temp Pulse Resp BP Pulse Ox 98.2 F 87 18 140/66 H 96 01/22/19 03:14 01/22/19 03:14 01/22/19 03:14 01/22/19 03:14 01/22/19 03:14 Intake & Output 01/21/19 01/22/19 01/23/19 06:59 06:59 06:59 Intake Total 1575 1420 Balance 1575 1420 Weight 74.4 kg 74.6 kg General appearance: PRESENT: no acute distress, well-developed, well-nourished Head exam: PRESENT: atraumatic, normocephalic Eye exam: PRESENT: conjunctiva pink, EOMI, PERRLA. ABSENT: scleral icterus Ear exam: PRESENT: normal external ear exam Mouth exam: PRESENT: moist, tongue midline Neck exam: ABSENT: carotid bruit, JVD, lymphadenopathy, thyromegaly Respiratory exam: PRESENT: clear to auscultation ramon. ABSENT: rales, rhonchi, wheezes Cardiovascular exam: PRESENT: RRR. ABSENT: diastolic murmur, rubs, systolic murmur Pulses: PRESENT: normal dorsalis pedis pul Vascular exam: PRESENT: normal capillary refill GI/Abdominal exam: PRESENT: normal bowel sounds, soft. ABSENT: distended, guarding, mass, organolmegaly, rebound, tenderness Rectal exam: PRESENT: deferred Extremities exam: PRESENT: full ROM. ABSENT: calf tenderness, clubbing, pedal edema Neurological exam: PRESENT: alert, awake, oriented to person, oriented to place, oriented to time, oriented to situation, CN II-XII grossly intact. ABSENT: motor sensory deficit Psychiatric exam: PRESENT: appropriate affect, normal mood. ABSENT: homicidal ideation, suicidal ideation Skin exam: PRESENT: dry, intact, warm. ABSENT: cyanosis, rash Results Laboratory Results: 01/21/19 11:10 01/21/19 11:10 01/21/19 01/21/19 11:10 11:10 WBC 6.0 RBC 3.28 L Hgb 10.1 L Hct 29.6 L MCV 90 MCH 30.9 MCHC 34.2 RDW 13.6 Plt Count 277 Seg Neutrophils % 65.7 Sodium 140.6 Potassium 4.1 Chloride 110 H Carbon Dioxide 18 L Anion Gap 13 BUN 9 Creatinine 1.13 Est GFR ( Amer) 58 L Glucose 80 Calcium 8.5 Total Bilirubin 0.4 AST 49 H Alkaline Phosphatase 58 Total Protein 7.5 Albumin 4.2 01/19/19 17:05 Stool - Stool - Final 01/19/19 17:05 Stool - Stool Stool Culture - Final NO SALMONELLA, SHIGELLA, CAMPYLOBACTER, OR E.COLI 0157 RECOVERED. NEGATIVE FOR SHIGA TOXINS 1&2. 01/15/19 01/15/19 01/16/19 23:23 23:23 05:38 CK-MB (CK-2) 1.87 1.49 Troponin I < 0.012 < 0.012 NT-Pro-B Natriuret Pep 114 01/16/19 11:21 CK-MB (CK-2) 1.30 Troponin I < 0.012 NT-Pro-B Natriuret Pep Impressions: Skeletal Survey 01/15/19 00:00 IMPRESSION: No suspicious lytic or blastic changes to the axial or appendicular skeletons. copyright 2011 [employer]- All Rights Reserved Chest X-Ray 01/15/19 20:25 IMPRESSION: No acute cardiopulmonary disease. Lumbar Spine X-Ray 01/15/19 20:30 IMPRESSION: No compression fractures. No lytic lesions. Mild degenerative changes. Assessment & Plan - Diagnosis (1) Light chain myeloma Is this a current diagnosis for this admission?: Yes Plan: Bone marrow biopsy pending this morning, when she is medically ready for discharge per primary team, she should follow-up in our office about 2 weeks after bone marrow biopsy. We will make those arrangements. - Time Time Spent with patient: 15-24 minutes
[2019-01-22 08:43] LABS: INTERNATIONAL RATION (INR) 1.11; PROTHROMBIN TIME 14.3 SEC (11.4-15.4)
[2019-01-22] MEDS: LISINOPRIL 10 MG TABLET PO SCH (09:05)
[2019-01-22] MEDS: HYDROCHLOROTHIAZIDE 12.5 MG TABLET PO SCH (09:06)
[2019-01-22] MEDS ORDERED: MIDAZOLAM 2 MG/2 ML INJ ONE (13:02)
[2019-01-22] MEDS ORDERED: FENTANYL CITRATE INJ/PF 100 MCG/2 ML AMPUL ONE (13:02)
--- NOTE | 2019-01-22 16:51 | RADIOLOGY REPORT (SQ) ---
EXAM DESCRIPTION: CT BIOPSY BONE DEEP; CT NEEDLE PLACEMENT COMPLETED DATE/TIME: 01/22/2019 2:53 pm REASON FOR STUDY: bone marrow biopsy "eval for myeloma"; BONE MARROW BIOPSY COMPARISON: None. TECHNIQUE: CT guided biopsy of the left iliac crest bone marrow performed with conscious sedation. CT Fluoroscopy Time: 3.[address] scanners at this facility use dose modulation, iterative reconstruction, and/or weight based d osing when appropriate to reduce radiation dose to as low as reasonably achievable (ALARA). [facility]: Dose Right [facility]: CareDose [facility]: Dose Right [facility]: Teradose 4D [facility]: RECUPYL RADIATION DOSE: mGy. FINDINGS: After obtaining informed consent and explaining the risks and benefits of conscious sedati on,the patient agreed to the procedure. Prior to the procedure, a time out was performed to verify th e patient's identity and planned procedure. IV conscious sedation was administered and physician direction by the registered nurse using 1 millig yvonne of Versed and 75 micrograms of fentanyl. Physiologic monitoring was provided before, during, and after sedation. The total sedation time was 30 minutes. Documentation face to face time, the performing proceduralist, spent monitoring the patient: [address] scanning was performed to localize the percutaneous site for the biopsy approach. After sterile skin prep and local lidocaine for skin and deep tissue anesthesia, a coaxial biopsy nee dle was used to obtain a bone marrow aspirate, and a bone marrow core of tissue. The biopsy tissue wa s received by Dr. Monge's nurse to be sent out for evaluation. There were no immediate complication s. Pathology is pending at the time of dictation. IMPRESSION: CT GUIDED ASPIRATE AND CORE BIOPSY OF THE LEFT POSTERIOR ILIAC CREST BONE MARROW PERFORM ED WITHOUT IMMEDIATE COMPLICATION. PATHOLOGY PENDING. IV CONSCIOUS SEDATION WITHOUT COMPLICATION. COMMENT: Quality ID 145: Final reports for procedures using fluoroscopy that document radiation exp osure indices, or exposure time and number of fluorographic images (if radiation exposure indices are not available) Patient medication list reviewed: Yes- Quality ID# [id number]:Eligible professional attests to documenting i n the medical record they obtained, updated, or reviewed the patient's current medications.. TECHNICAL DOCUMENTATION: JOB ID: [id number] Quality ID# [id number]: Final reports with documentation of one or more dose reduction techniques (e.g., Aut omated exposure control, adjustment of the mA and/or kV according to patient size, use of iterative r econstruction technique) 2010 [employer]- All Rights Reserved Reading location - IP/workstation name: [email or web address]
--- NOTE | 2019-01-22 16:51 | RADIOLOGY REPORT (SQ) ---
EXAM DESCRIPTION: CT BIOPSY BONE DEEP; CT NEEDLE PLACEMENT COMPLETED DATE/TIME: 01/22/2019 2:53 pm REASON FOR STUDY: bone marrow biopsy "eval for myeloma"; BONE MARROW BIOPSY COMPARISON: None. TECHNIQUE: CT guided biopsy of the left iliac crest bone marrow performed with conscious sedation. CT Fluoroscopy Time: 3.[address] scanners at this facility use dose modulation, iterative reconstruction, and/or weight based d osing when appropriate to reduce radiation dose to as low as reasonably achievable (ALARA). [facility]: Dose Right [facility]: CareDose [facility]: Dose Right [facility]: Teradose 4D [facility]: [address] RADIATION DOSE: mGy. FINDINGS: After obtaining informed consent and explaining the risks and benefits of conscious sedati on,the patient agreed to the procedure. Prior to the procedure, a time out was performed to verify th e patient's identity and planned procedure. IV conscious sedation was administered and physician direction by the registered nurse using 1 millig yvonne of Versed and 75 micrograms of fentanyl. Physiologic monitoring was provided before, during, and after sedation. The total sedation time was 30 minutes. Documentation face to face time, the performing proceduralist, spent monitoring the patient: [address] scanning was performed to localize the percutaneous site for the biopsy approach. After sterile skin prep and local lidocaine for skin and deep tissue anesthesia, a coaxial biopsy nee dle was used to obtain a bone marrow aspirate, and a bone marrow core of tissue. The biopsy tissue wa s received by Dr. Monge's nurse to be sent out for evaluation. There were no immediate complication s. Pathology is pending at the time of dictation. IMPRESSION: CT GUIDED ASPIRATE AND CORE BIOPSY OF THE LEFT POSTERIOR ILIAC CREST BONE MARROW PERFORM ED WITHOUT IMMEDIATE COMPLICATION. PATHOLOGY PENDING. IV CONSCIOUS SEDATION WITHOUT COMPLICATION. COMMENT: Quality ID 145: Final reports for procedures using fluoroscopy that document radiation exp osure indices, or exposure time and number of fluorographic images (if radiation exposure indices are not available) Patient medication list reviewed: Yes- Quality ID# [id number]:Eligible professional attests to documenting i n the medical record they obtained, updated, or reviewed the patient's current medications.. TECHNICAL DOCUMENTATION: JOB ID: [id number] Quality ID# [id number]: Final reports with documentation of one or more dose reduction techniques (e.g., Aut omated exposure control, adjustment of the mA and/or kV according to patient size, use of iterative r econstruction technique) 2010 [employer]- All Rights Reserved Reading location - IP/workstation name: [email or web address]
[2019-01-22 18:50] VITALS: BP 150/56
--- NOTE | 2019-01-22 19:39 | PDOC DISCHARGE SUMMARY ---
Impression - Admit/DC Date/PCP Admission Date/Primary Care Provider: 01/15/19 22:11 SÁNCHEZ HERBERT MD Discharge Date: 01/22/19 - Discharge Diagnosis (1) Hypercalcemia Is this a current diagnosis for this admission?: Yes (2) Anemia Is this a current diagnosis for this admission?: Yes (3) Acute kidney injury Is this a current diagnosis for this admission?: Yes (4) Light chain myeloma Is this a current diagnosis for this admission?: Yes (5) Diarrhea Is this a current diagnosis for this admission?: Yes - Additional Information Resuscitation Status: Full Code Discharge Diet: As Tolerated, Regular Discharge Activity: Activity As Tolerated, Balance Activity w/Rest Referrals: MICK AMADO MD [ACTIVE STAFF] - (Someone will call you tomorrow with appointment.) SÁNCHEZ HERBERT MD [Primary Care Provider] - Follow up as needed (Someone will call you with your follow-up appointment tomorrow.) Prescriptions: Lisinopril 20 mg PO DAILY #90 tablet Home Medications: Calcium Carb, Citrate/Vit D3 [Calcium + D3 ER Tablet] 1 each PO DAILY 01/15/19 Cyclobenzaprine HCl [Flexeril 10 mg Tablet] 10 mg PO TIDP PRN 01/15/19 Denosumab [Prolia 60 mg/ml Syr 1 ml] 60 mg SUBCUT .6MONTHS 01/15/19 Gabapentin [Neurontin 300 mg Capsule] 300 mg PO Q8 01/15/19 Oxycodone HCl 5 mg PO Q6HP PRN 01/15/19 Pravastatin Sodium 10 mg PO DAILY 01/15/19 Lisinopril 20 mg PO DAILY #90 tablet 01/22/19 History of Present Illiness History of Present Illness: DORITA HOLLINS is a 68 year old female,Patient was admitted directly from outpatient for the management of hypercalcemia. She had blood work done initially on December 27, 2018 the blood work demonstrated elevated serum creatinine at 1.83 because of this elevation of serum creatinine she was evaluated for possible etiology of the azotemia. Initially a kidney ultrasound was done, The kidney ultrasound showed medical renal disease with no hydronephrosis, subsequent blood work that was done on 01/10/2019 demonstrated serum calcium 11.9, serum creatinine 2.21, the intact PTH was low at 8 she also had anemia, hemoglobin was 8.7. The constellation of hypercalcemia, anemia, acute kidney injury is consistent with multiple myeloma. She is admitted to the hospital to be treated for the hypercalcemia with hydration and probably biphosphonate and also evaluated for multiple myeloma. Serum protein electrophoresis will be ordered free serum light chain will be ordered Hospital Course Hospital Course: Patient was admitted for the management of hypercalcemia, acute kidney injury, anemia, multiple myeloma was suspected. She was treated with intravenous normal saline, the hypercalcemia was corrected, she also had the azotemia corrected with IV fluid. The serum protein electrophoresis did not demonstrate any monoclonal spike, the serum free kappa light chain was elevated, the ratio was abnormal, the elevation was not elevated enough that is typical of natural myeloma, consultation was obtained from oncology because I felt patient needed a bone marrow biopsy. This was done today.She also had diarrhea in the hospital, stool study was negative for C. difficile toxin. Physical Exam Vital Signs: Temp Pulse Resp BP Pulse Ox 98.2 F 86 16 159/79 H 100 01/22/19 18:15 01/22/19 18:15 01/22/19 18:15 01/22/19 18:15 01/22/19 18:15 Intake & Output 01/21/19 01/22/19 01/23/19 06:59 06:59 06:59 Intake Total 1575 1420 Balance 1575 1420 Weight 74.4 kg 74.6 kg General appearance: PRESENT: no acute distress Eye exam: PRESENT: PERRLA Respiratory exam: PRESENT: clear to auscultation ramon Cardiovascular exam: PRESENT: +S1, +S2 GI/Abdominal exam: PRESENT: soft Neurological exam: PRESENT: alert, CN II-XII grossly intact Results Laboratory Results: WBC 6.0 10^3/uL (4.0-10.5) 01/21/19 11:10 RBC 3.28 10^6/uL (3.72-5.28) L 01/21/19 11:10 Hgb 10.1 g/dL (12.0-15.5) L 01/21/19 11:10 Hct 29.6 % (36.0-47.0) L 01/21/19 11:10 MCV 90 fl (80-97) 01/21/19 11:10 MCH 30.9 pg (27.0-33.4) 01/21/19 11:10 MCHC 34.2 g/dL (32.0-36.0) 01/21/19 11:10 RDW 13.6 % (11.5-14.0) 01/21/19 11:10 Plt Count 277 10^3/uL (150-450) 01/21/19 11:10 Lymph % (Auto) 26.4 % (13-45) 01/21/19 11:10 [place] % (Auto) 6.8 % (3-13) 01/21/19 11:10 Eos % (Auto) 0.6 % (0-6) 01/21/19 11:10 Baso % (Auto) 0.5 % (0-2) 01/21/19 11:10 Reticulocyte # 0.042 10^6/uL (0.028-0.122) 01/20/19 11:40 Absolute Neuts (auto) 4.0 10^3/uL (1.7-8.2) 01/21/19 11:10 Absolute Lymphs (auto) 1.6 10^3/uL (0.5-4.7) 01/21/19 11:10 Absolute Monos (auto) 0.4 10^3/uL (0.1-1.4) 01/21/19 11:10 Absolute Eos (auto) 0.0 10^3/uL (0.0-0.6) 01/21/19 11:10 Absolute Basos (auto) 0.0 10^3/uL (0.0-0.2) 01/21/19 11:10 Seg Neutrophils % 65.7 % (42-78) 01/21/19 11:10 Retic Count (auto) 1.41 % (0.66-2.85) 01/20/19 11:40 PT 14.3 SEC (11.4-15.4) 01/22/19 07:47 INR 1.11 01/22/19 07:47 APTT 41.9 SEC (23.5-35.8) H 01/15/19 23:23 Sodium 140.6 mmol/L (137-145) 01/21/19 11:10 Potassium 4.1 mmol/L (3.6-5.0) 01/21/19 11:10 Chloride 110 mmol/L (98-107) H 01/21/19 11:10 Carbon Dioxide 18 mmol/L (22-30) L 01/21/19 11:10 Anion Gap 13 (5-19) 01/21/19 11:10 BUN 9 mg/dL (7-20) 01/21/19 11:10 Creatinine 1.13 mg/dL (0.52-1.25) 01/21/19 11:10 Est GFR ( Amer) 58 (>60) L 01/21/19 11:10 Est GFR (MDRD) Non-Af 48 (>60) L 01/21/19 11:10 Glucose 80 mg/dL (75-110) 01/21/19 11:10 Hemoglobin A1c % 6.2 % (4.7-6.0) H 01/16/19 05:38 Calcium 8.5 mg/dL (8.4-10.2) 01/21/19 11:10 Phosphorus 5.0 mg/dL (2.5-4.5) H 01/15/19 21:20 Magnesium 2.2 mg/dL (1.6-2.3) 01/15/19 21:20 Iron 60.5 ug/dL (37-170) 01/20/19 11:40 TIBC 277 ug/dL (250-450) 01/20/19 11:40 % Saturation 22 % 01/20/19 11:40 Ferritin 50.40 ng/mL (11.1-264.0) 01/20/19 11:40 Total Bilirubin 0.4 mg/dL (0.2-1.3) 01/21/19 11:10 Direct Bilirubin 0.1 mg/dL (0.0-0.4) 01/21/19 11:10 Neonat Total Bilirubin Not Reportable 01/21/19 11:10 Neonat Direct Bilirubin Not Reportable 01/21/19 11:10 Neonat Indirect Bili Not Reportable 01/21/19 11:10 AST 49 U/L (14-36) H 01/21/19 11:10 ALT 39 U/L (<35) 01/21/19 11:10 Alkaline Phosphatase 58 U/L (38-126) 01/21/19 11:10 CK-MB (CK-2) 1.30 ng/mL (<4.55) 01/16/19 11:21 Troponin I < 0.012 ng/mL 01/16/19 11:21 NT-Pro-B Natriuret Pep 114 pg/mL (<125) 01/15/19 23:23 Total Protein 7.5 g/dL (6.3-8.2) 01/21/19 11:10 Albumin 4.2 g/dL (3.5-5.0) 01/21/19 11:10 Globulin 3.0 g/dL (2.2-3.9) 01/15/19 21:20 Globulin 3.1 g/dL (2.2-3.9) 01/15/19 21:20 Albumin/Globulin Ratio 1.0 (0.7-1.7) 01/15/19 21:20 Alb/Glob Ratio Alt Meth 1.2 (0.7-1.7) 01/15/19 21:20 Pbbxk-7-Srmyynzqt 0.2 g/dL (0.0-0.4) 01/15/19 21:20 Aytbw-8-Utshqlikf 0.2 g/dL (0.0-0.4) 01/15/19 21:20 Xwwsd-4-Eshnqjhre 0.7 g/dL (0.4-1.0) 01/15/19 21:20 Beta Globulins 1.0 g/dL (0.7-1.3) 01/15/19 21:20 Beta Globulins 1.0 g/dL (0.7-1.3) 01/15/19 21:20 Gamma Globulins 1.0 g/dL (0.4-1.8) 01/15/19 21:20 Gamma Globulins 1.1 g/dL (0.4-1.8) 01/15/19 21:20 M-Jh Not Observed g/dL (Not Observ) 01/15/19 21:20 M-Jh Not Observed g/dL (Not Observ) 01/15/19 21:20 PEP Note Comment (.) 01/15/19 21:20 PEP Interpretation Comment (.) 01/15/19 21:20 Amylase 100 U/L (30-110) 01/15/19 21:20 Lipase 37.8 U/L (23-300) 01/15/19 21:20 Vitamin B12 749.0 pg/mL (239-931) 01/20/19 11:40 Folate > 20.00 ng/mL (>2.76) 01/20/19 11:40 TSH 9.49 uIU/mL (0.47-4.68) H 01/15/19 21:20 Free T4 1.02 ng/dL (0.78-2.19) 01/15/19 21:20 PTH Intact 51.8 pg/mL (10.0-65.0) 01/15/19 23:23 Immunoglobulin A 115 mg/dL (87-352) 01/15/19 21:20 Immunoglobulin G 1098 mg/dL (700-1600) 01/15/19 21:20 Immunoglobulin M 134 mg/dL (26-217) 01/15/19 21:20 Serum Immunofixation Comment (.) 01/15/19 21:20 Immunofixation Note Comment (.) 01/15/19 21:20 Urine Color STRAW 01/16/19 07:30 Urine Appearance CLEAR 01/16/19 07:30 Urine pH 5.0 (5.0-9.0) 01/16/19 07:30 Ur Specific [place] 1.009 01/16/19 07:30 Urine Protein NEGATIVE mg/dL (NEGATIVE) 01/16/19 07:30 Urine Glucose (UA) NEGATIVE mg/dL (NEGATIVE) 01/16/19 07:30 Urine Ketones NEGATIVE mg/dL (NEGATIVE) 01/16/19 07:30 Urine Blood NEGATIVE (NEGATIVE) 01/16/19 07:30 Urine Nitrite NEGATIVE (NEGATIVE) 01/16/19 07:30 Urine Bilirubin NEGATIVE (NEGATIVE) 01/16/19 07:30 Urine Urobilinogen NEGATIVE mg/dL (<2.0) 01/16/19 07:30 Ur Leukocyte Esterase MODERATE (NEGATIVE) H 01/16/19 07:30 Urine WBC (Auto) 10 /HPF 01/16/19 07:30 Urine RBC (Auto) 2 /HPF 01/16/19 07:30 U Hyaline Cast (Auto) 15 /LPF 01/15/19 21:20 Squamous Epi Cells Auto <1 /HPF 01/16/19 07:30 Urine Mucus (Auto) RARE /LPF 01/16/19 07:30 Urine Creatinine 117.4 mg/dL (15-278) 01/15/19 21:20 Ur Albumin 24 Hour 100.0 % (.) 01/16/19 20:00 Ur Total Protein 24 Hr 100 mg/24 hr (30-150) 01/16/19 20:00 Protein/Creatinin Ratio 0.1 mg/mg (0.0-0.2) 01/15/19 21:20 Urine Total Protein 4.6 mg/dL (Not Estab.) 01/16/19 20:00 Urine Albumin 100.0 % (.) 01/15/19 21:20 U Egzvo-1-Avwscsdr 0.0 % (.) 01/16/19 20:00 U Aowtc-4-Mkhmvbdk 0.0 % (.) 01/16/19 20:00 U Beta Globulin 0.0 % (.) 01/16/19 20:00 U Gamma Globulin 0.0 % (.) 01/16/19 20:00 U Random M-Jh (%) Not Observed % (Not Observ) 01/15/19 21:20 U PEP M-Jh % 24 Hr Not Observed % (Not Observ) 01/16/19 20:00 U PEP M-Jh 24 Hr TNP 01/16/19 20:00 Urine PEP Interpret Comment (.) 01/16/19 20:00 Urine PEP Note Comment (.) 01/16/19 20:00 Urine Ascorbic Acid 20 (NEGATIVE) H 01/16/19 07:30 Stool for White Cells NO WBCs SEEN 01/20/19 08:20 Stl C. Difficile GDH Ag NEGATIVE (NEGATIVE) 01/20/19 08:20 Stl C.difficile Tox A&B NEGATIVE (NEGATIVE) 01/20/19 08:20 Urine Opiates Screen NEGATIVE 01/16/19 07:30 Urine Methadone Screen NEGATIVE 01/16/19 07:30 Ur Barbiturates Screen NEGATIVE 01/16/19 07:30 Ur Phencyclidine Scrn NEGATIVE 01/16/19 07:30 Ur Amphetamines Screen NEGATIVE 01/16/19 07:30 U Benzodiazepines Scrn NEGATIVE 01/16/19 07:30 Urine Cocaine Screen NEGATIVE 01/16/19 07:30 U Marijuana (THC) Screen NEGATIVE 01/16/19 07:30 Albumin (ADRIÁN) 3.3 g/dL (2.9-4.4) 01/15/19 21:20 Gblfr-4-Axqnbzren ADRIÁN 0.8 g/dL (0.4-1.0) 01/15/19 21:20 Free [place] LC, Quant 48.0 mg/L (3.3-19.4) H 01/15/19 21:20 Free Lambda LC, Quant 25.0 mg/L (5.7-26.3) 01/15/19 21:20 Free [place]/Lambda Ratio 1.92 (0.26-1.65) H 01/15/19 21:20 01/15/19 01/15/19 01/16/19 23:23 23:23 05:38 CK-MB (CK-2) 1.87 1.49 Troponin I < 0.012 < 0.012 NT-Pro-B Natriuret Pep 114 01/16/19 11:21 CK-MB (CK-2) 1.30 Troponin I < 0.012 NT-Pro-B Natriuret Pep Impressions: Skeletal Survey 01/15/19 00:00 IMPRESSION: No suspicious lytic or blastic changes to the axial or appendicular skeletons. copyright 2011 [employer]- All Rights Reserved Chest X-Ray 01/15/19 20:25 IMPRESSION: No acute cardiopulmonary disease. Lumbar Spine X-Ray 01/15/19 20:30 IMPRESSION: No compression fractures. No lytic lesions. Mild degenerative changes. Guidance Needle Placement CT 01/22/19 00:00 IMPRESSION: CT GUIDED ASPIRATE AND CORE BIOPSY OF THE LEFT POSTERIOR ILIAC CREST BONE MARROW PERFORMED WITHOUT IMMEDIATE COMPLICATION. PATHOLOGY PENDING. IV CONSCIOUS SEDATION WITHOUT COMPLICATION. Bone Biopsy CT 01/22/19 06:00 IMPRESSION: CT GUIDED ASPIRATE AND CORE BIOPSY OF THE LEFT POSTERIOR ILIAC CREST BONE MARROW PERFORMED WITHOUT IMMEDIATE COMPLICATION. PATHOLOGY PENDING. IV CONSCIOUS SEDATION WITHOUT COMPLICATION. Stroke Is this a Stroke Patient?: No Acute Heart Failure - Is this a Heart Failure Patient?: No
== END 2019-01-22 19:45 | disposition home or self-care (01) | DRG 841 ==
LOC: ER 19:46 → EH 22:11 → 3N 01-16
PROVIDERS: ADMIT Internal Medicine; ATTEND Internal Medicine
PROC: 07DR3ZX Extraction of Iliac Bone Marrow, Percutaneous Approach, Diagnostic (ICD-10-PCS; principal; 2019-01-22)
DX: C90.00 Multiple myeloma not having achieved remission (principal); N17.9 Acute kidney failure, unspecified; I10 Essential (primary) hypertension; M19.90 Unspecified osteoarthritis, unspecified site; Z87.891 Personal history of nicotine dependence; Z88.6 Allergy status to analgesic agent; D63.0 Anemia in neoplastic disease; Z79.899 Other long term (current) drug therapy; R19.7 Diarrhea, unspecified
CPT/HCPCS: 20225; 36415; 71046; 72100; 77012; 77075; 80053; 80307; 81001; 82150; 82553; 82570; 82607; 82728; 82746; 83036; 83540; 83550; 83690; 83735; 83880; 83883; 83970; 84100; 84156; 84165; 84166; 84439; 84443; 84484; 85025; 85045; 85610; 85730; 86320; 87045; 87205; 87324; 87449; 89055; 99283; J1644; J2250; J3010; J3490; J7030

== ENCOUNTER → 2019-09-25 | Outpatient (CLI) | payer MEDICARE, MEDICAID, OTHER ==
--- NOTE | 2019-09-25 14:58 | RADIOLOGY REPORT (SQ) ---
EXAM DESCRIPTION: KNEE RIGHT 2 VIEWS IMAGES COMPLETED DATE/TIME: 09/25/2019 11:57 am REASON FOR STUDY: PAIN IN RIGHT KNEE M25.561 PAIN IN RIGHT KNEE COMPARISON: None. NUMBER OF VIEWS: Two views. TECHNIQUE: AP and lateral radiographic images acquired of the right knee. LIMITATIONS: None. FINDINGS: MINERALIZATION: Normal. BONES: No acute fracture or dislocation. No worrisome bone lesions. JOINT: No effusion. SOFT TISSUES: No soft tissue swelling. No radio-opaque foreign body. OTHER: No other significant finding. IMPRESSION: NEGATIVE STUDY OF THE RIGHT KNEE. NO RADIOGRAPHIC EVIDENCE OF ACUTE INJURY. TECHNICAL DOCUMENTATION: JOB ID: [id number] 2010 [employer]- All Rights Reserved Reading location - IP/workstation name: [email or web address]
== END ==
LOC: OD 11:35
PROVIDERS: ATTEND Internal Medicine
DX: M25.561 Pain in right knee (principal)

== ENCOUNTER → 2020-01-30 | Outpatient (CLI) | payer MEDICAID, MEDICARE ==
--- NOTE | 2020-01-30 14:07 | WOMENS IMAGING REPORT ---
EXAM DESCRIPTION: 3D SCREENING MAMMO BILAT IMAGES COMPLETED DATE/TIME: 01/30/2020 1:39 pm REASON FOR STUDY: ENCNTR SCREEN MAMMOGRAM FOR MALIGNANT NEOPLASM OF BREAST Z12.31 ENCNTR SCREEN HECTOR MOGRAM FOR MALIGNANT NEOPLASM OF [place] COMPARISON: Priors back to 2012 EXAM PARAMETERS: Views: Standard craniocaudal and mediolateral oblique views of each breast recorded using digital acquisition and breast tomosynthesis. Read with the assistance of CAD. .[facility] - [place] Grade [employer]per Version 9.2 LIMITATIONS: None. FINDINGS: No suspicious masses, suspicious calcifications or architectural distortion. No areas of c oncern. IMPRESSION: NEGATIVE MAMMOGRAM. BIRADS 1. BREAST DENSITY: b. There are scattered areas of fibroglandular density. BIRAD: ASSESSMENT: 1 NEGATIVE RECOMMENDATION: ROUTINE SCREENING COMMENT: The patient has been notified of the results by letter per MQSA requirements. Additional no tification policies are in place for contacting patient with suspicious or incomplete findings. Quality ID #[id number]: The [employer] recommends an annual screening mammogram for women aged 40 years or over. This facility utilizes a reminder system to ensure that all patients receive reminder letters, and/or direct phone calls for appointments. This includes reminders for routine scr eening mammograms, diagnostic mammograms, or other Breast Imaging Interventions when appropriate. Th is patient will be placed in the appropriate reminder system. TECHNICAL DOCUMENTATION: FINDING NUMBER: (1) ASSESSMENT: (1) JOB ID: [id number] 2010 [employer]- All Rights Reserved Reading location - IP/workstation name: [email or web address]
== END ==
LOC: WI 13:05
PROVIDERS: ATTEND Internal Medicine
DX: Z12.31 Encounter for screening mammogram for malignant neoplasm of breast (principal)
CPT/HCPCS: 77063; 77067